=== PATIENT | male | born 1950 | race Caucasian/White ===

== ENCOUNTER 2021-05-19 11:14 | Outpatient (CLI) | payer MEDICARE, MEDICAID, SELFPAY ==
--- NOTE | 2021-05-19 11:00 | USCV_ITS ---
Morris Levin Age: 71 Gender: M : 1950 Exam Date: 05/19/2021 11:39 Ordering Phys: Hussein Hall MD Technologist: Brionna Guevara Exam Location: [facility] – [place] Indication: bilateral lower extremity swelling HISTORY: bilateral lower extremity swelling, history DVT RLE 2013 PROCEDURES: The venous duplex Doppler examination of both lower extremities was performed in the standard fashion. In addition, the posterior tibial and peroneal trunk were evaluated. Bilaterally, the common femoral, superficial femoral, profunda femoral, popliteal, posterior tibial, greater saphenous veins, and the peroneal trunk were identified and interrogated in the standard fashion. These veins were found to be easily compressible with spontaneous blood flow. FINDINGS: No DVT or superficial thrombus seen at this time. CONCLUSIONS No evidence of right lower extremity DVT. No evidence of left lower extremity DVT. Zev Goldman MD (Electronically Signed) Final Date: 19 May 2021 13:14 S
== END 2021-05-19 11:15 | disposition home or self-care (01) ==
LOC: RAD 11:20
PROVIDERS: PCP Family Medicine; Visit Provider Family Medicine
DX: M79.89 Other specified soft tissue disorders (principal)
CPT/HCPCS: 93970

== ENCOUNTER → 2022-05-25 14:08 | Outpatient (BNVA) | payer MEDICARE, MEDICAID, SELFPAY | PROVIDERS: PCP Family Medicine; Visit Provider Family Medicine | DX: Z00.00 Encounter for general adult medical examination without abnormal findings (principal) | CPT/HCPCS: 80053; 84153; 85025 ==

== ENCOUNTER 2022-08-12 22:04 | Inpatient (IN) | payer MEDICARE, MEDICAID, SELFPAY ==
[2022-08-12 22:05] VITALS: PULSE 76; RESP 18; TEMP 36.5; O2SAT 96; BMI 24.4
[2022-08-12 22:26] VITALS: O2SAT 94
--- NOTE | 2022-08-12 22:32 | XRR_ITS ---
PROCEDURE INFORMATION: Exam: XR Chest Exam date and time: 08/12/2022 11:01 PM Age: 72 years old Clinical indication: Shortness of breath; Additional info: SOB TECHNIQUE: Imaging protocol: Radiologic exam of the chest. Views: 1 view. COMPARISON: CR XR chest 2V* [id number] 05/23/2018 9:42 AM FINDINGS: Lungs: Emphysematous changes. Left upper lobe 2.8 cm focal airspace opacity, not seen on prior exam, consider further evaluation with chest CT. Right lower lobe calcified granuloma again seen. Pleural spaces: Unremarkable. No pleural effusion. No pneumothorax. Heart/Mediastinum: Cardiomegaly. Bones/joints: Unremarkable. XR/XR chest 1V portable [id number] IMPRESSION: 1. Cardiomegaly. 2. Emphysematous changes. 3. Left upper lobe 2.8 cm focal airspace opacity, not seen on prior exam, consider further evaluation with chest CT. 4. Right lower lobe calcified granuloma again seen.
--- NOTE | 2022-08-12 22:32 | ECG_ITS ---
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
--- NOTE | 2022-08-12 22:32 | CTR_ITS ---
PROCEDURE INFORMATION: Exam: CT Head Without Contrast Exam date and time: 08/12/2022 10:55 PM Age: 72 years old Clinical indication: Altered mental status/memory loss; Additional info: AMS TECHNIQUE: Imaging protocol: Computed tomography of the head without contrast. Radiation optimization: All CT scans at this facility use at least one of these dose optimization techniques: automated exposure control; mA and/or kV adjustment per patient size (includes targeted exams where dose is matched to clinical indication); or iterative reconstruction. COMPARISON: No relevant prior studies available. RADIATION DOSE METRICS: Total DLP (mGy-cm): 1125.98 FINDINGS: Brain: Mild diffuse white matter disease likely reflecting chronic microvascular ischemic changes. Cerebral ventricles: No ventriculomegaly. Paranasal sinuses: Visualized sinuses are unremarkable. No fluid levels. Mastoid air cells: Visualized mastoid air cells are well aerated. Bones/joints: Unremarkable. No acute fracture. Soft tissues: Unremarkable. CT/CT head wo con* [id number] IMPRESSION: Negative for intracranial hemorrhage or mass effect
[2022-08-12] MEDS: sodium chloride 0.9% 1,000 ML 999 ML IV (22:34)
--- NOTE | 2022-08-12 22:43 | W.ED.AMS ---
HPI - Altered Mental Status General: Chief Complaint: Altered Mental Status Stated Complaint: sob Time Seen by Provider: 08/12/22 22:10 Source: family Mode of arrival: ambulatory Limitations: altered mental status History of Present Illness: 72-year-old male who is here with his daughter patient was last seen by daughter yesterday does have a history of COPD he does take meds at night including alprazolam and trazodone they state they were called tonight to see it fell out of his wheelchair onto his had on the ground for roughly an hour when they arrived he was very lethargic patient is lethargic here as well he will awaken and answer some my questions he does have a history of COPD he is on oxygen at home he is 96% here on room air. Review of Systems General: Reports: ROS unobtainable due to mental status PFS ED PFSH: Medical History (Updated 08/13/22 @ 00:07 by Baldev Carlson MD) COPD (chronic obstructive pulmonary disease) Social History (Updated 08/12/22 @ 22:43 by Baldev Carlson MD) Substance/Drug Use: unknown Physical Exam Const: GENERAL APPEARANCE: ill appearing and frail appearing HENMT: COMMON NORMALS: normocephalic and atraumatic HEAD & SCALP: normocephalic and atraumatic Eye: COMMON NORMALS: Equal, round and reactive pupils present PUPIL: Yes Equal, round and reactive pupils present Neck/C-Spine: COMMON NORMALS: full ROM and supple Chest: COMMONS NORMALS: normal inspection of the chest and normal palpation of entire chest wall Resp: COMMON NORMALS: normal respiratory effort and clear to auscultation bilaterally AUSCULTATION: clear to auscultation bilaterally Cardio: COMMON NORMALS: regular rate and regular rhythm RATE: regular rate RHYTHM: regular rhythm GI: COMMON NORMALS: Normal to inspection, nondistended, normoactive bowel sounds present Back/Pelvis: COMMON NORMALS: thoracic and lumbar spine normal to inspection Extremity: COMMON NORMALS: normal to inspection and full ROM Neuro: OTHER: Patient is very lethargic but will wake up and answer my questions and does know his name Psych: COMMON NORMALS: negative for mental status grossly normal Skin: COMMON NORMALS: no rashes or lesions noted GENERAL SKIN EXAM: no rashes or lesions noted Course Vital Signs: Vital signs: Vital Signs Temperature 97.7 F 08/12/22 22:05 Pulse Rate 73 08/13/22 00:09 Respiratory Rate 17 08/13/22 00:09 Blood Pressure 123/66 08/13/22 00:09 Pulse Oximetry 99 08/13/22 00:09 Oxygen Delivery Me thod 08/13/22 00:09 Oxygen Flow Rate 4 08/12/22 22:05 MDM - Altered Mental Status Medical Decision Making Patient presents here with altered mental status most likely med related he will awake here he still quite lethargic CT shows lung mass is likely cancerous this is new. Patient has no signs of infection his blood work here is normal spoke to hospitalist will admit for observation. Lab Data : 08/12/22 22:28 08/12/22 22:28 Radiology Impressions Chest X-Ray 08/12/22 22:32 IMPRESSION: 1. Cardiomegaly. 2. Emphysematous changes. 3. Left upper lobe 2.8 cm focal airspace opacity, not seen on prior exam, consider further evaluation with chest CT. 4. Right lower lobe calcified granuloma again seen. Head CT 08/12/22 22:32 IMPRESSION: Negative for intracranial hemorrhage or mass effect Chest CT 08/12/22 23:04 IMPRESSION: 1. Mid left upper anterior lung field 9.1 mm thick area of somewhat nodular pleural thickening corresponding to the area of abnormality seen on comparison chest x-ray, new compared to prior exam. Highly suspicious nodule(s). Consider non-emergent PET/CT, or tissue sampling.(Reference: Romulo) 2. Left adrenal 3.1 cm low-density nodule suggestive of a benign adenoma given stability. 3. Left kidney nonobstructing calyceal stones. 4. T11 and T12 vertebral compression fractures appear chronic. 5. Mid sternal body chronic appearing healed fracture. 6. Cardiomegaly. 7. Coronary artery atherosclerotic calcifications. 8. Emphysematous changes. 9. Small hiatal hernia. 10. Lower sternal body mildly depressed fracture, new compared to prior exam, potentially acute, please correlate clinically. COMMENTS: Consistent with the [place] [employer]'s Incidental Findings Committee white paper (J Am Ivanna Radiol 2017): For any incidental adrenal lesion greater than or equal to 1 cm but less than or equal to 4 cm classified in this report as benign, likely benign, or containing fat (including classification as an adenoma or myelolipoma), no follow-up imaging is recommended per consensus recommendations based on imaging criteria. Further lab evaluation could be pursued if warranted based on clinical findings. REFERENCES: Romulo Rowe, et al. Guidelines for Management of Incidental Pulmonary Nodules Detected on CT Images: From the Fleischner Society 2017. Radiology. 2017;284(1):228-243. Laboratory Results WBC 11.5 10^3/uL (4.0-10.0) H 08/12/22 22: RBC 3.33 10^6/uL (4.1-5.3) L 08/12/22 22: Hgb 7.8 g/dL (11.7-16.6) L 08/12/22: Hct 27.3 % (42.0-52.0) L 08/12/22: MCV 82.0 fl (80-94) 08/12/22: MCH 23.4 pg (28.0-34.0) L 08/12/22: MCHC 28.6 g/dL (30.0-36.0) L 08/12/22: RDW 19.5 % (12.1-15.1) H 08/12/22: Plt Count 418 10^3/cmm (130-400) H 08/12/22: MPV 9.9 fL (7.4-10.4) 08/12/22: Neut % (Auto) 56.6 % 08/12/22: Lymph % (Auto) 26.4 % 08/12/22: Gillespie % (Auto) 14.1 % 08/12/22: Eos % (Auto) 1.8 % 08/12/22: Baso % (Auto) 0.8 % 08/12/22: Neut # (Auto) 6.50 10^3/uL (1.8-7.7) 08/12/22: Lymph # (Auto) 3.0 10^3/uL (0.8-4.8) 08/12/22 22: Gillespie # (Auto) 1.6 10^3/uL (0.2-0.9) H 08/12/22 22:28 Eos # (Auto) 0.2 10^3/uL (0.0-0.8) 08/12/22 22:28 Baso # (Auto) 0.1 10^3/uL (0.0-0.1) 08/12/22 22:28 Nucleated RBC % (auto) 0 % 08/12/22 22:28 Nucleated RBCs # 0.0 /100WBC 08/12/22 22:28 PT 20.40 SECONDS (12.1-14.9) H 08/12/22 23:20 INR 1.71 (0.8-1.2) H 08/12/22 23:20 Specimen Type Arterial 08/12/22 22:32 Sample Site Radial, right 08/12/22 22:32 ABG pH 7.32 (7.35-7.45) L 08/12/22 22:32 ABG pCO2 67.1 mmHg (35-45) H* 08/12/22 22:32 ABG pO2 85.5 mmHg (80.0-100.0) 08/12/22 22:32 ABG HCO3 34.8 mmol/L (22-26) H 08/12/22 22:32 ABG Base Excess 7.6 mmol/L (-2.0-2.0) H 08/12/22 22:32 Thanh Test Pos 08/12/22 22:32 Hematocrit 24.2 % (42-52) L 08/12/22 22:32 O2 Delivery Device Nc 08/12/22 22:32 O2 Liters/Min 4.0 % 08/12/22 22:32 System Analyst ID [email or web address] 08/12/22 22:32 Sodium 137 mmol/L (136-145) 08/12/22 22:28 Potassium 4.0 mmol/L (3.5-5.1) 08/12/22 22:28 Chloride 96 mmol/L (98-107) L 08/12/22 22:28 Carbon Dioxide 34 mmol/L (22-29) H 08/12/22 22:28 Anion Gap 11.0 (5-19) 08/12/22 22:28 BUN 10 mg/dL (8-23) 08/12/22 22:28 Creatinine 0.6 mg/dL (0.7-1.2) L 08/12/22 22:28 GFR Calculation Not Reportable 08/12/22: Glucose 89 mg/dL (65-115) 08/12/22: Calculated Osmolality 283 mOsm/kg (285-295) L 08/12/22: Lactate 1.1 mmol/L (0.5-2.2) 08/12/22: Calcium 8.5 mg/dL (8.5-10.5) 08/12/22: Magnesium 2.0 mg/dL (1.7-2.3) 08/12/22: Total Bilirubin 0.2 mg/dL (0.15-1.2) 08/12/22: AST 21 U/L (0-40) 08/12/22: ALT 7 U/L (0-41) 08/12/22: Alkaline Phosphatase 84 U/L (40-130) 08/12/22: Creatine Kinase 480 U/L (39-308) H* 08/12/22: Troponin T Baseline 18 ng/L (0-15) H 08/12/22: NT-Pro-B Natriuret Pep 130 pg/mL (0-125) H 08/12/22: Total Protein 6.6 g/dL (6.6-8.7) 08/12/22: Albumin 3.3 g/dL (3.5-5.2) L 08/12/22: Globulin 3.3 g/dL (1.3-4.6) 08/12/22: Lipase 16 U/L (13-60) 08/12/22: Urine Color Yellow (Yellow) 08/12/22: Urine Appearance Clear (CLEAR) 08/12/22: Urine pH 6 (5-7) 08/12/22: Ur Specific [place] 1.025 (1.005-1.030) 08/12/22: Urine Protein Neg (Negative) 08/12/22: Urine Glucose (UA) Norm (Normal) 08/12/22: Urine Ketones Negative (Negative) 08/12/22: Urine Blood Neg (Negative) 08/12/22: Urine Nitrate Negative (Negative) 09/24/22 22:28 Urine Bilirubin Neg (Negative) 08/12/22 22:28 Urine Urobilinogen Neg mg/dL (Negative) 08/12/22 22:28 Ur Leukocyte Esterase Negative (Negative) 08/12/22 22:28 Ethyl Alcohol < 10 mg/dL (0-10) 08/12/22 22:28 SARS-CoV-2 Ag (Rapid) Negative (Negative) 08/12/22 23:13 EKG Data EKG 1: I personally reviewed and interpreted this EKG as follows: EKG interpretation date: 08/12/22 EKG interpretation time: 22:28 Interpretation: nsr hr [address] or t wave abnormalities qrs 111 qtc 433 Discharge Plan Discharge Patient Disposition: Admitted As Inpatient Admit Provider: Sharif Carolina Clinical Impression: Altered mental status, Lung mass Condition: Stable Coding Level of Care Code ED Facilities Maintenance Manager for Chg Fwd Exam Comprehensive
[2022-08-12 22:47] LABS: Basophils # 0.1 10^3/uL (0.0-0.1); Basophils % 0.8 %; Eosinophils # 0.2 10^3/uL (0.0-0.8); Eosinophils % 1.8 %; Hematocrit 27.3 % (42.0-52.0); Hemoglobin 7.8 g/dL (11.7-16.6); Lymphocytes % 26.4 %; Mean Corpuscular HGB Conc 28.6 g/dL (30.0-36.0); Mean Corpuscular Hemoglobin 23.4 pg (28.0-34.0); Mean Platelet Volume 9.9 fL (7.4-10.4); Monocytes # 1.6 10^3/uL (0.2-0.9); Monocytes % 14.1 %; Neutrophils % 56.6 %; Nucleated Red Blood Cells % 0 %; Platelet Count 418 10^3/cmm (130-400); Red Blood Count 3.33 10^6/uL (4.1-5.3); Red Cell Distribution Width 19.5 % (12.1-15.1); White Blood Count 11.5 10^3/uL (4.0-10.0)
--- NOTE | 2022-08-12 23:04 | CTR_ITS ---
PROCEDURE INFORMATION: Exam: CT Chest Without Contrast; Diagnostic Exam date and time: 08/12/2022 11:25 PM Age: 72 years old Clinical indication: Shortness of breath; Additional info: Mass TECHNIQUE: Imaging protocol: Diagnostic computed tomography of the chest without contrast. Radiation optimization: All CT scans at this facility use at least one of these dose optimization techniques: automated exposure control; mA and/or kV adjustment per patient size (includes targeted exams where dose is matched to clinical indication); or iterative reconstruction. COMPARISON: CT chest [facility] [id number] 01/13/2016 2:56 PM RADIATION DOSE METRICS: Total DLP (mGy-cm): 603.31 FINDINGS: Lungs: Mid left upper anterior lung field 9.1 mm thick area of somewhat nodular pleural thickening corresponding to the area of abnormality seen on comparison chest x-ray, new compared to prior exam. Emphysematous changes. Pleural spaces: See Lungs finding. Heart: Cardiomegaly. Coronary artery atherosclerotic calcifications. Lymph nodes: Unremarkable. No enlarged lymph nodes. Vasculature: Unremarkable. No aortic aneurysm. Adrenal glands: Left adrenal 3.1 cm low-density nodule suggestive of a benign adenoma given stability. Kidneys and ureters: Left kidney nonobstructing calyceal stones. Bones/joints: T11 and T12 vertebral compression fractures appear chronic. Mid sternal body chronic appearing healed fracture. Lower sternal body mildly depressed fracture, new compared to prior exam, potentially acute, please correlate clinically. Soft tissues: Small hiatal hernia. CT/CT chest [facility] [id number] IMPRESSION: 1. Mid left upper anterior lung field 9.1 mm thick area of somewhat nodular pleural thickening corresponding to the area of abnormality seen on comparison chest x-ray, new compared to prior exam. Highly suspicious nodule(s). Consider non-emergent PET/CT, or tissue sampling.(Reference: Romulo) 2. Left adrenal 3.1 cm low-density nodule suggestive of a benign adenoma given stability. 3. Left kidney nonobstructing calyceal stones. 4. T11 and T12 vertebral compression fractures appear chronic. 5. Mid sternal body chronic appearing healed fracture. 6. Cardiomegaly. 7. Coronary artery atherosclerotic calcifications. 8. Emphysematous changes. 9. Small hiatal hernia. 10. Lower sternal body mildly depressed fracture, new compared to prior exam, potentially acute, please correlate clinically. COMMENTS: Consistent with the [place] [employer]'s Incidental Findings Committee white paper (J Am Ivanna Radiol 2017): For any incidental adrenal lesion greater than or equal to 1 cm but less than or equal to 4 cm classified in this report as benign, likely benign, or containing fat (including classification as an adenoma or myelolipoma), no follow-up imaging is recommended per consensus recommendations based on imaging criteria. Further lab evaluation could be pursued if warranted based on clinical findings. REFERENCES: Romulo Rowe, et al. Guidelines for Management of Incidental Pulmonary Nodules Detected on CT Images: From the Fleischner Society 2017. Radiology. 2017;284(1):228-243.
[2022-08-12 23:08] LABS: Lactate (Lactic Acid level) 1.1 mmol/L (0.5-2.2)
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
[2022-08-12 23:10] LABS: Troponin(5th) Baseline 18 ng/L (0-15)
[2022-08-12 23:13] LABS: Add Urine Microscopic? NO; Charge for UA Resulting for Rev
[2022-08-12 23:18] LABS: Alanine Aminotransferase 7 U/L (0-41); Albumin Level 3.3 g/dL (3.5-5.2); Alkaline Phosphatase 84 U/L (40-130); Aspartate Amino Transferase 21 U/L (0-40); Blood Urea Nitrogen 10 mg/dL (8-23); Calcium 8.5 mg/dL (8.5-10.5); Carbon Dioxide 34 mmol/L (22-29); Chloride 96 mmol/L (98-107); Globulin 3.3 g/dL (1.3-4.6); Glucose 89 mg/dL (65-115); Lipase 16 U/L (13-60); NT Pro B Type Natriuretic Pept 130 pg/mL (0-125); Osmolality Calculated 283 mOsm/kg (285-295); Sodium 137 mmol/L (136-145); Total Bilirubin 0.2 mg/dL (0.15-1.2); Total Protein 6.6 g/dL (6.6-8.7)
[2022-08-12 23:21] LABS: Bilirubin Urine Neg (Negative); Blood Urine Neg (Negative); Glucose Urine UA Norm (Normal); Ketones Urine Negative (Negative); Leukocyte Esterase Urine Negative (Negative); Nitrate Urine Negative (Negative); Protein Urine Neg (Negative); Specific Gravity, Urine 1.025 (1.005-1.030); Urine Appearance Clear (CLEAR); Urine Color Yellow (Yellow); Urobilinogen Urine Neg (Negative); pH Urine 6 (5-7)
[2022-08-12 23:21] LABS: ABG PH Result 7.32 (7.35-7.45); Arterial Blood Gas Hematocrit 24.2 % (42-52); Base Excess ABG 7.6 mmol/L (-2.0-2.0); Blood Gas Allen Test Pos; Blood Gas Sample Site Radial, right; Blood Gas Sample Type Arterial; HCO3 ABG 34.8 mmol/L (22-26); Oxygen Device NC; PO2 ABG 85.5 mmHg (80.0-100.0)
[2022-08-12 23:22] LABS: ABG PCO2 67.1 mmHg (35-45)
[2022-08-12 23:22] LABS: Alcohol Level < 10 mg/dL (0-10); Creatine Phosphokinase 480 U/L (39-308); Creatinine Clr Calc Pharmacy 94.8975
--- NOTE | 2022-08-12 23:22 | PC.NURSE ---
critical lab, CK 480, called from lab, dr salinas notified
[2022-08-12 23:35] LABS: INR 1.71 (0.8-1.2)
[2022-08-12 23:38] LABS: SARS Covid-2 Antigen Negative (Negative)
[2022-08-12 23:45] VITALS: BP 131/66; PULSE 76; RESP 17; O2SAT 100
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
[2022-08-13] VITALS (158 sets, daily range): BP systolic 101–176; BP diastolic 49–138; PULSE 60–95; RESP 3–26; TEMP 36.2–36.8; O2SAT 79–99
--- NOTE | 2022-08-13 00:11 | PC.NURSE ---
patient resting with eyes closed resp even and unlabored, vss, arouses to tactile stimulus.
--- NOTE | 2022-08-13 00:29 | PC.NURSE ---
report called to Shannan STOVER, accepted to room 262 med surg
--- NOTE | 2022-08-13 00:50 | PC.NURSE ---
Addendum entered by Ruthann Freire RN 08/13/22 02:30: while in the process of transporting patient to med surg unit, dr rod stated that patient would be going to icu, med surg notified. patient placed back in ed 13. Original Note: while in the process of moving patient down [place] to med surg, dr rod stated that patient would be going to ICU. Med surg called and notified. patient placed back in ed 13.
--- NOTE | 2022-08-13 01:04 | USCV_ITS ---
Morris Levin Age: 72 Gender: M : 1950 Exam Date: 08/13/2022 01:23 Ordering Phys: Sharif Carolina MD Technologist: Radha Cortez Exam Location: [facility] [place] Indication: AMS COPD BP: 130 / 66 HR: 70 Rhythm: Sinus Technical Quality: Adequate MEASUREMENTS (Male / Female) Normal Values 2D ECHO LV Diastolic Diameter PLAX 4.6 cm 4.2 - 5.9 / 3.9 - 5.3 cm LV Systolic Diameter PLAX 3.1 cm LV Chamber Size 2.8 cm IVS Diastolic Thickness 1.5 cm 0.6 - 1.0 / 0.6 - 0.9 cm IVS Systolic Thickness 1.6 cm LVPW Diastolic Thickness 1.2 cm 0.6 - 1.0 / 0.6 - 0.9 cm LVPW Systolic Thickness 1.8 cm RV Chamber Size 3.0 cm LVOT Diameter 2.0 cm LV Ejection Fraction 2D Teich 59.2 % LV Ejection Fraction MOD 2C 74.4 % LV Ejection Fraction 2C AL 74.0 % LA Diameter 3.8 cm LA Width 3.4 cm LA Height 3.1 cm RA Width 3.7 cm RA Height 3.4 cm Aorta at Sinotubular Diameter 3.0 cm IVC Diameter 1.8 cm M-MODE Aortic Annulus Diameter 4.0 cm LA Ao Ratio MM 1.0 MV E Point Septal Separation 0.9 cm DOPPLER AV Peak Velocity 147.0 cm/s LVOT Peak Velocity 87.0 cm/s AV Area Cont Eq vti 2.0 cm squared AV Area Cont Eq pk 1.9 cm squared MV Area PHT 2.5 cm squared Mitral E to A Ratio 0.7 MV E' Velocity 34.0 cm/s Mitral E to MV E' Ratio 8.8 Mitral E to LV E' Lateral Ratio 10.2 Mitral E to LV E' Septal Ratio 7.9 TR Peak Velocity 155.2 cm/s TR Peak Gradient 9.6 mmHg TR Mean Velocity 104.7 cm/s TR Mean Gradient 5.4 mmHg TR Velocity Time Integral 40.8 cm TV Peak E Velocity 58.0 cm/s Right Atrial Pressure 3.0 mmHg Pulmonary Artery Systolic Pressu 12.6 mmHg RV Acceleration Time 0.2 s RV Ejection Time 0.4 s RV AcT/ET 0.5 FINDINGS Left Ventricle Normal left ventricular size and systolic function, EF 59 %. No regional wall motion abnormalities. Mild left ventricular hypertrophy. Grade I/IV diastolic dysfunction (abnormal relaxation filling pattern), normal to mildly elevated filling pressures. Right Ventricle The right ventricle is normal in size and function. Right Atrium The right atrium is normal in size. Left Atrium The left atrium is normal in size. Mitral Valve No gross abnormalities noted Aortic Valve No gross abnormalities noted Tricuspid Valve Trace tricuspid valve regurgitation. Pulmonic Valve Pulmonic valve not well visualized. Pericardium Normal pericardium without effusion. Aorta Normal ascending aorta dimension. IVC Normal inferior vena cava. CONCLUSIONS Normal left ventricular size and systolic function, EF 59 %. No regional wall motion abnormalities. Mild left ventricular hypertrophy. Grade I/IV diastolic dysfunction (abnormal relaxation filling pattern), normal to mildly elevated filling pressures. Trace tricuspid valve regurgitation. Estimated pulmonary artery peak systolic pressure within normal limits. There is no pericardial effusion. There are no intracardiac masses. No similar previous studies are available for comparison Dr Mi Narayanan MD FACC (Electronically Signed) Final Date: 13 August 2022 09:28 S
--- NOTE | 2022-08-13 01:07 | PM.HP ---
Providers/Chief Complaint Admitting Physician: Sharif Carolina MD Primary Care Provider: Hussein Hall MD Chief Complaint: sob History of Present Illness Morris Levin is a 72 year old male with a past medical history of DVTs: Xarelto, history of COPD on 2 L, currently on methadone, doses unknown, but takes it in the morning, history of chronic anxiety and trazodone, and alprazolam who presents [facility] due to altered mental status, nonresponsiveness. Currently patient is awake, opens his eyes, but falls back asleep, alert oriented x3, does not follow commands, opens his eyes to sternal rub, but falls back asleep, does not withdraw from pain pupils are pinpoint, but reactive to light, patient's son and daughter at bedside. I also spoke to patient's Ania, who tells me that Morris [place], this evening, they were walking together to bed, when they both tripped and fell, she tells me that she took the biggest brunt of the fall, he had minimal trauma, but since then he has not been able to wake up, has been confused. She reports that he has been the regular old bill of health, no history of strokes, no history of heart disease, no history of overdose, she took he takes alprazolam, trazodone also takes methadone but she not sure how much methadone he takes. Denies any alcohol use, no other medication or drug use. He is does take Xarelto for history of lower extremity DVT. His head CT was negative for intracranial bleed. He has not had a prior fall in the past. Currently blood pressure 123/63, pulse 73, respiratory 15, temperature 97.7, O2 sat 93%. I did go over the scans with the radiologist, to ensure that there was no intracranial bleed, as patient's INR is elevated, he is on Xarelto, there is a questionable history of him falling and hitting his head, however radiologist advised me that there is no intracranial bleed Review of Systems General: Reports: ROS unobtainable due to mental status Medications/Allergies Home Medications Medication Instructions Recorded Confirmed Last Taken Type rivaroxaban 20 mg tablet (Xarelto) 20 mg PO DAILY #30 tabs 07/28/22 08/02/22 Unknown Rx Inogen Portable Oxygen Concentrator #1 ea 08/02/22 08/02/22 Unknown Rx albuterol sulfate 2.5 mg/0.5 mL 5 mg inhalation Q6H PRN shortness 08/02/22 08/02/22 Unknown History solution for nebulization of breath or wheezing albuterol sulfate 90 mcg/actuation 2 puff inhalation Q6H PRN 08/02/22 08/02/22 Unknown History aerosol inhaler (Ventolin HFA) alprazolam 1 mg tablet 1 mg PO TID PRN anxiety #90 tabs 08/02/22 08/02/22 Unknown Rx lovastatin 40 mg tablet 40 mg PO DAILY 08/02/22 08/02/22 Unknown History tamsulosin 0.4 mg capsule 0.4 mg PO DAILY 08/02/22 08/02/22 Unknown History trazodone 50 mg tablet 50 mg PO DAILY 08/02/22 08/02/22 Unknown History Allergies Allergy/AdvReac Type Severity Reaction Status Date / Time Unable to Assess Allergy Unverified 05/25/22 14:02 PFSH Acute PFSH: Medical History (Updated 08/13/22 @ 01:17 by Sharif Carolina MD) COPD (chronic obstructive pulmonary disease) History of anxiety History of DVT (deep vein thrombosis) Methadone use Social History (Updated 08/13/22 @ 01:17 by Sharif Carolina MD) Smoking and tobacco status: former smoker Alcohol intake: never Substance/Drug Use: never Vitals/I&O/Wt Last Vital Signs Temp 97.7 F 08/12/22 22:05 Pulse 73 08/13/22 00:43 Resp 15 08/13/22 00:43 BP 123/63 08/13/22 00:43 Pulse Ox 95 08/13/22 00:43 O2 Del Method 08/13/22 00:30 O2 Flow Rate 4 08/12/22 22:05 Weight last 48 hrs Weight 81.647 kg Physical Exam Const: COMMON NORMALS: no acute distress EXAM LIMITATIONS: altered mental status ORIENTATION/CONSCIOUSNESS: Yes awake and Yes confused; not oriented to person, not oriented to place and not oriented to time HENMT: COMMON NORMALS: normocephalic HEAD & SCALP: normocephalic Eye: OTHER: Pupils are pinpoint, minimally reactive to light Neck/C-Spine: COMMON NORMALS: no JVD Resp: COMMON NORMALS: normal respiratory effort, No retractions, No use of accessory muscles and clear to auscultation bilaterally AUSCULTATION: clear to auscultation bilaterally Cardio: COMMON NORMALS: no JVD, regular rate, regular rhythm, S1 normal heart sound present and S2 normal heart sound present RATE: regular rate RHYTHM: regular rhythm HEART SOUNDS: S1 normal heart sound present and S2 normal heart sound present GI: COMMON NORMALS: Normal to inspection, nondistended, normoactive bowel sounds present, Soft to palpation, non-tender, No hepatosplenomegaly present, no masses and no bruits PALPATION: Yes Soft to palpation and Yes No hepatosplenomegaly present Extremity: NARRATIVE EXTREMITY EXAM: Nonpitting edema Neuro: OTHER: Not follow following neurologic testing Urinary Catheter Management: Chacko: Cath Placed During This Visit: yes Urinary Catheter Date of Insertion: 08/12/22 Urinary Catheter Time of Insertion: 22:26 Data : 08/12/22 22:28 08/12/22 22:28 A&P Assessment and plan (1) Altered mental status: (2) COPD (chronic obstructive pulmonary disease): (3) Supplemental oxygen dependent: (4) Anxiety: Plan Altered mental status -Etiology unclear -Perhaps hypercarbia related to COPD could be playing a role, -In addition polypharmacy, he takes methadone during the day, trazodone, alprazolam chest CT -1. Mid left upper anterior lung field 9.1 mm thick area of somewhat nodular pleural thickening corresponding to the area of abnormality seen on comparison chest x-ray, new compared to prior exam. Highly suspicious nodule(s). Consider non-emergent PET/CT, or tissue sampling.(Reference: CelsoMahon) 2. Left adrenal 3.1 cm low-density nodule suggestive of a benign adenoma given stability. 3. Left kidney nonobstructing calyceal stones. 4. T11 and T12 vertebral compression fractures appear chronic. 5. Mid sternal body chronic appearing healed fracture. 6. Cardiomegaly. 7. Coronary artery atherosclerotic calcifications. 8. Emphysematous changes. 9. Small hiatal hernia. 10.? Lower sternal body mildly depressed fracture, new compared to prior exam, potentially acute, please correlate clinically. -No significant electrolyte abnormalities -Does have acute on chronic anemia etiology unclear -No significant evidence UTI, no significant evidence of pneumonia Plan -ESR, CRP, Pro-Silvestre -Neurochecks, NIH stroke scale -Hold alprazolam, trazodone, will have to call the pharmacy in the morning tomorrow to get his methadone dosing -Place BiPAP, for hypercarbia, monitor mentation, however not in exacerbation for COPD as note there is no wheezing, no shortness of breath complaints, he is on his 2 L saturating high 90s -Check ammonia levels -If his mentation does not improve will consider MRI of the brain, cardiac echo, carotid ultrasound -Full code, spoke to Ania -Dano for DVT prophylaxis Lower sternal body fracture, mildly depressed fracture, continue to monitor, monitor for pain Acute on chronic anemia, hemoglobin 7.8, is on Xarelto, etiology unclear, ferritin, iron, Hemoccult stool Lung nodule, 9.1 mm, will need to follow-up with pulmonary History of DVT, continue Xarelto Attestations Medical Necessity Statement*: Patient requires hospitalization, inpatient, greater than 2 minutes, due to altered mental status Coding Level of Care Code Acute Principal Embedded Software Engineer for Anh Giron Diagnoses Altered mental status R41.82 COPD (chronic obstructive pulmonary disease) J44.9 Supplemental oxygen dependent Z99.81 Anxiety F41.9
[2022-08-13] MEDS: pantoprazole 40 mg SDV IVP ×2 (01:20→13:32)
[2022-08-13] MEDS: sodium chloride 0.9% 1,000 ML 75 ML IV (01:20)
--- NOTE | 2022-08-13 01:20 | PC.NURSE ---
patient laying in bed at this time, eyes closed, vss, on bipap at 40% and tolerating well. opens eyes to repeated verbal stimulus, difficulty following commands, pinpoint pupils. lab at bedside for blood draw.patient repositioned with pillows to left side lying.
[2022-08-13 01:28] LABS: Reticulocyte % 1.1 % (0.5-2.0)
--- NOTE | 2022-08-13 01:30 | PC.NURSE ---
patient made NPO status
[2022-08-13 01:32] LABS: Erythrocyte Sedimentation Rate 64 mm/hr (0-10)
[2022-08-13 01:48] LABS: Lactic Sepsis W/Reflex 0.9 mmol/L (0.5-2.2)
[2022-08-13 01:49] LABS: Troponin 5 2HR 18.98 ng/L (0-15)
[2022-08-13 01:54] LABS: Troponin 5 2HR Delta 0.98 ABS# (0-10)
[2022-08-13 01:58] LABS: NT Pro B Type Natriuretic Pept 177 pg/mL (0-125)
[2022-08-13 02:20] LABS: Acetaminophen < 5.0 ug/mL (10-30); Salicylate < 0.3 mg/dL (3-10)
[2022-08-13 02:26] LABS: Procalcitonin 0.03 ng/mL (0-0.5); Thyroid Stimulating Hormone 0.28 uIU/mL (0.27-4.20); Vitamin B12 313 pg/mL (232-1245)
--- NOTE | 2022-08-13 02:29 | PC.NURSE ---
report called, accepted to ICU 8.
[2022-08-13 02:36] LABS: Ferritin 19 ng/mL (30-400); Iron 13 ug/dL (59-158)
--- NOTE | 2022-08-13 02:49 | PC.NURSE ---
Saving site called to update nursing staff that patient is candidate for donation. Attempting to reach family at this time. Patient will be moved to facility [facility].
--- NOTE | 2022-08-13 03:40 | ECG_ITS ---
[facility] Test Date: 2022-08-13 Pat Name: Morris Levin Department: Room: Gender: Male Potato Sorter: : 1950 Requested By: Baldev Carlson Order Number: [id number] Reading MD: Measurements Intervals Neville Rate: 67 P: 155 MT: 179 QRS: -18 QRSD: 94 T: 14 QT: 414 QTc: 440 Interpretive Statements ECTOPIC ATRIAL RHYTHM POSSIBLE RIGHT VENTRICULAR CONDUCTION DELAY [RSR (QR) IN V1/V2] ANTEROLATERAL MYOCARDIAL INFARCTION , OF INDETERMINATE AGE [40+ ms Q WAVE IN I/aVL/V3-V6] Compared to ECG 08/12/2022 22:28:48 Ectopic atrial rhythm now present Sinus rhythm no longer present Incomplete right bundle-branch block no longer present Myocardial infarct finding still present [id number]
--- NOTE | 2022-08-13 04:02 | PC.NURSE ---
Patient arrived to unit around 0310, transfer from ED. Orders had been previously acknowledged by ED after previously attempting to admit to [facility] unit. Patient is AO to person and year but not to date. Skin tears were noted to left elbow and forearm. Site was cleansed and two optifoam dressings applied. Patient was unable to answer questions involving home meds and denied any immunizations recently. Patient was put back on bipap shortly after initial assessment by RT. No family present to answer additional questions.
[2022-08-13 04:41] LABS: Amphetamines Screen Urine Negative (Negative); Barbiturates Screen Urine Negative (Negative); Benzodiazepines Screen Urine Positive (Negative); Cocaine Screen Urine Negative (Negative); Opiate Screen Urine Negative (Negative); PCP Screen Urine Negative (Negative); THC Screen Urine Negative (Negative)
[2022-08-13 05:12] LABS: Ammonia 37 umol/L (16-60)
[2022-08-13 05:35] LABS: Troponin 5 6HR 17.54 ng/L (0-15)
[2022-08-13 05:41] LABS: Troponin 5 6HR Delta -0.46 ng/L (0-12)
[2022-08-13 06:25] LABS: ABG PH Result 7.34 (7.35-7.45); Base Excess ABG 8.4 mmol/L (-2.0-2.0); Blood Gas Allen Test Pos; Blood Gas Operator Identificat MONRO; Blood Gas Sample Site Brachial, right; Blood Gas Sample Type Arterial; Carboxyhemoglobin 1.7 %THgb (0.4-20.1); HCO3 ABG 35.4 mmol/L (22-26); Ionized Calcium Level - ABG 1.2 mmol/L (1.1-1.4); Methemoglobin 0.9 % (0.4-1.5); Oxygen Device BIPAP; Oxygen Saturation ABG 94.5; PO2 ABG 69.7 mmHg (80.0-100.0); Potassium Level - ABG 3.7 mmol/L (3.5-5.0); Total Hemoglobin 7.8 g/dL (14-18)
[2022-08-13 06:26] LABS: Alveolar-Arterial Oxygen Gradi 8.4 mmHg (5-10)
[2022-08-13 06:27] LABS: ABG PCO2 65.3 mmHg (35-45)
--- NOTE | 2022-08-13 06:35 | PC.NURSE ---
Family Contact Patient's , Ania, called to check up on patient. During phone call, was very hysterical stating multiple times Do you understand that I'm picking him up this morning? I've never lived on my own, we've been 36 years and I am not staying here alone. Do you understand that you cannot keep him against his will and I am picking him up. Education provided on patient condition and stay regarding how patient is not unwilling to be here; did not allow statements to be made without interrupting stating once again, I don't know why he's there, he doesn't need to be there. When we fell, I took the brunt of the fall and he's not hurt at all, I don't know why you're keeping him there. I'm taking him home. Nurse asked, Ma'am, do you need to be seen by a medical provider? then stated, No, I'm fine and so is my . I'm taking him home. Education attempted to be provided by nurse on patient condition and legal aspects of patient stay; Understanding not verbalized.
--- NOTE | 2022-08-13 06:38 | PC.NURSE ---
Patient's called in hysterics over seeing her . She states You can not hold him against his will, I took the brunt of the fall and all the blood is from me. I informed her that she needs to seek medical attention. She insists that the hospital is holding her against his will and that she is just fine and does not need help. I explained to her that her is not agitated or asking to leave. Patient is resting peacefully on bipap to help with oxygen levels. then stated I will walk to the hospital if you will just tell me how to get there and take him home. I informed her that I did not know where she lived so I could not give her directions. She was unable to give me her address or a road number. Is not sure how to get to the hospital. Police department was notified and sending an officer out for a well-being check.
[2022-08-13 07:29] LABS: Basophils # 0.1 10^3/uL (0.0-0.1); Basophils % 1.3 %; Eosinophils # 0.3 10^3/uL (0.0-0.8); Eosinophils % 2.5 %; Hematocrit 26.6 % (42.0-52.0); Lymphocytes # 3.4 10^3/uL (0.8-4.8); Lymphocytes % 33.4 %; Mean Corpuscular HGB Conc 30.1 g/dL (30.0-36.0); Mean Corpuscular Hemoglobin 23.5 pg (28.0-34.0); Mean Corpuscular Volume 78.2 fl (80-94); Mean Platelet Volume 10.7 fL (7.4-10.4); Monocytes # 1.4 10^3/uL (0.2-0.9); Monocytes % 13.7 %; Neutrophils # 4.87 10^3/uL (1.8-7.7); Nucleated Red Blood Cells % 0 %; Platelet Count 369 10^3/cmm (130-400); Red Cell Distribution Width 19.4 % (12.1-15.1); White Blood Count 10.1 10^3/uL (4.0-10.0)
[2022-08-13] MEDS: iron sucrose 200 MG in sodium chloride 0.9% (100 ml) 100 ML 220 MG IV (07:33)
[2022-08-13 07:41] LABS: Alanine Aminotransferase 8 U/L (0-41); Alkaline Phosphatase 82 U/L (40-130); Anion Gap 9.1 (5-19); Aspartate Amino Transferase 28 U/L (0-40); Blood Urea Nitrogen 7 mg/dL (8-23); Calcium 8.3 mg/dL (8.5-10.5); Carbon Dioxide 33 mmol/L (22-29); Chloride 103 mmol/L (98-107); Globulin 3.1 g/dL (1.3-4.6); Glucose 73 mg/dL (65-115); Osmolality Calculated 289 mOsm/kg (285-295); Potassium 4.1 mmol/L (3.5-5.1); Sodium 141 mmol/L (136-145); Total Bilirubin 0.2 mg/dL (0.15-1.2); Total Protein 6.1 g/dL (6.6-8.7)
[2022-08-13] MEDS: ipratropium-albuterol 3 mL Neb INHALATION ×4 (07:49→19:48)
--- NOTE | 2022-08-13 08:00 | PC.NURSE ---
hugh called to check on demanding that we let him come hold and stop holding him against his will explained that he is requiring machine to help him breath and that had possible too much medication and was not able to come home at this time . continued to cry and yell that he needed to come home, they have not been apart for 36 years and she was coming up here if she had to walk but she was out of coffee so she had to go to store 20 min away and change out of pajamas and then take shower before.. attempted to calm her down but continued to scream im out of coffee and you have to let him come home. requested information on family who could help her she related her father lives across the street but he had cancer and he helps them but it is too early in morning to call him. continued to ask about who cares for them at home and helps with medication she finally gave name of antonio daughter in law and son ,, but she cant help with medicine she is not to be trusted with that , they come cook for us a couple times a week but you can not call them it is too early and they will be mad at me and use the f word a lot. after approximatly 20 to 30 min got her to calm down and to go eat breakfast and get dressed Did attempt to call friend ok with no answer and call placed to Antonio with no answer message left social services technician notified
--- NOTE | 2022-08-13 09:45 | PC.NURSE ---
son called about when his father is coming home.. we need him here today attempted to talk to him about his mother who appeared to need help after multiple calls and wellness check by police. thats just the way mom is i just need to know when he is getting out today . explained status of machine assisting him breathing and had too much medication on board need to be in hospital for several days. asked for his phone number and explained referal to outreach and education social worker to maybe assist
[2022-08-13 10:50] LABS: ABG PCO2 54.7 mmHg (35-45); ABG PH Result 7.41 (7.35-7.45); Alveolar-Arterial Oxygen Gradi 16.2 mmHg (5-10); Base Excess ABG 8.9 mmol/L (-2.0-2.0); Blood Gas Allen Test Pos; Blood Gas Operator Identificat CAK; Blood Gas Sample Site Radial, right; Blood Gas Sample Type Arterial; Carboxyhemoglobin 1.8 %THgb (0.4-20.1); HCO3 ABG 34.6 mmol/L (22-26); Ionized Calcium Level - ABG 1.2 mmol/L (1.1-1.4); Methemoglobin 1.5 % (0.4-1.5); Oxygen Device BIPAP; PO2 ABG 58.3 mmHg (80.0-100.0); Potassium Level - ABG 3.8 mmol/L (3.5-5.0); Total Hemoglobin 7.8 g/dL (14-18)
[2022-08-13] MEDS: predniSONE 20 mg Tablet 40 MG PO (11:21)
[2022-08-13 12:20] LABS: Chol HDL Ratio 2.73 mg/dL (1.0-5.00); Cholesterol 131 mg/dL (0-200); HDL Cholesterol 48 mg/dL (60-100); LDL Cholesterol Calculated 74 mg/dL (50-129); Triglycerides 43 mg/dL (0-150); VLDL Cholestrol Calculation 9 mg/dL (0-30)
[2022-08-13 12:36] LABS: Vitamin B12 283 pg/mL (232-1245)
[2022-08-13 12:38] LABS: Estmated Average Glucose 97
--- NOTE | 2022-08-13 14:42 | P.MISC_ITS ---
Miscellaneous Note Purpose of Documentation: Cross coverage note. Note: Admitted overnight. H&P appreciated. On examination patient is on BiPAP. Sleeping. Wakes up to verbal stimulus. Formulation the patient is alert and oriented x3. He does not remember why he was brought to the hospital. States he does not consume alcohol anymore. States he gets his methadone through [facility]. Not sure of his dose. States he will manage his own medication. Plan: Most likely altered mental status secondary to polypharmacy. Hypoxia secondary to COPD exacerbation and altered mental status. Check ABG to get a baseline. It seems his baseline PCO2 would be somewhere between 50-60. Switch to high flow nasal cannula keeping saturation over 88%. Start on Solu-Medrol 40 mg every 8 hourly. DuoNebs every 6 hours, budesonide twice daily. Check echocardiogram. Start on full liquid diet. Stop IV fluids. Patient does not have any active bleeding. Hemoglobin seems to be stable as before. Iron panel consistent with severe iron deficiency anemia. Continue with IV iron started overnight. Restart Xarelto at home dose. Check stool for occult blood. If hemoglobin dropping down or stool for occult blood positive will stop Xarelto and evaluate with EGD/colonoscopy. Protonix 40 mg twice daily Continue to hold off on home dose of trazodone, Xanax. Will have to call pharmacy in a.m. to get dose of methadone. Meanwhile start on Dilaudid 0.2 mg every 4 hour as needed to avoid withdrawal. Check MRSA swab, stool culture, vitamin B12, folate, procalcitonin, TSH.
[2022-08-13] MEDS: budesonide 0.5 mg/2 mL Neb INHALATION ×2 (15:13→19:48)
[2022-08-13 15:37] LABS: ABG PCO2 56.5 mmHg (35-45); ABG PH Result 7.38 (7.35-7.45); Alveolar-Arterial Oxygen Gradi 28.7 mmHg (5-10); Arterial Blood Gas Hematocrit 24.9 % (42-52); Base Excess ABG 7.6 mmol/L (-2.0-2.0); Blood Gas Allen Test Pos; Blood Gas Operator Identificat CAK; Blood Gas Sample Site Radial, left; Blood Gas Sample Type Arterial; Carboxyhemoglobin 1.5 %THgb (0.4-20.1); HCO3 ABG 33.7 mmol/L (22-26); Ionized Calcium Level - ABG 1.2 mmol/L (1.1-1.4); Methemoglobin 1.1 % (0.4-1.5); Oxygen Device HAG; Oxygen Saturation ABG 93.4; PO2 ABG 66.6 mmHg (80.0-100.0); Potassium Level - ABG 3.8 mmol/L (3.5-5.0); Total Hemoglobin 8.1 g/dL (14-18)
[2022-08-14] VITALS (52 sets, daily range): BP systolic 109–148; BP diastolic 47–79; PULSE 62–116; RESP 6–29; TEMP 36.6–36.8; O2SAT 90–99
[2022-08-14] MEDS: pantoprazole 40 mg SDV IVP ×2 (01:12→12:13)
[2022-08-14] MEDS: HYDROmorphone 1 mg/mL INJ 1 mL 0.2 MG IVP (01:45)
[2022-08-14 04:23] LABS: Basophils % 0.1 %; Hematocrit 26.4 % (42.0-52.0); Lymphocytes # 1.2 10^3/uL (0.8-4.8); Lymphocytes % 11.3 %; Mean Corpuscular HGB Conc 30.3 g/dL (30.0-36.0); Mean Corpuscular Hemoglobin 23.8 pg (28.0-34.0); Mean Corpuscular Volume 78.6 fl (80-94); Mean Platelet Volume 10.1 fL (7.4-10.4); Monocytes # 0.6 10^3/uL (0.2-0.9); Neutrophils # 9.06 10^3/uL (1.8-7.7); Nucleated Red Blood Cells % 0.2 %; Platelet Count 427 10^3/cmm (130-400); Red Blood Count 3.36 10^6/uL (4.1-5.3); Red Cell Distribution Width 19.3 % (12.1-15.1); White Blood Count 10.9 10^3/uL (4.0-10.0)
[2022-08-14 04:39] LABS: Alanine Aminotransferase 10 U/L (0-41); Alkaline Phosphatase 78 U/L (40-130); Anion Gap 11.1 (5-19); Aspartate Amino Transferase 23 U/L (0-40); Blood Urea Nitrogen 5 mg/dL (8-23); Calcium 8.7 mg/dL (8.5-10.5); Carbon Dioxide 31 mmol/L (22-29); Chloride 101 mmol/L (98-107); Globulin 3.5 g/dL (1.3-4.6); Glucose 140 mg/dL (65-115); Magnesium 2.1 mg/dL (1.7-2.3); Osmolality Calculated 288 mOsm/kg (285-295); Phosphorus 2.2 mg/dL (2.5-4.5); Potassium 4.1 mmol/L (3.5-5.1); Sodium 139 mmol/L (136-145); Total Bilirubin 0.2 mg/dL (0.15-1.2); Total Protein 6.5 g/dL (6.6-8.7)
--- NOTE | 2022-08-14 07:01 | PC.NURSE ---
Shift Note Frequent safety and comfort rounds continue. Orders and/or nursing care completed as indicated. Patient monitored for response to intervention and treatment(s). Education provided includes medications and treatment goals. Patient needs reinforcement teaching. Patient had an uneventful shift, remains alert and oriented x4 on BIPAP 40% FiO2. Skin tear noted to left elbow, no other wounds/skin issues noted at this time. Chacko catheter drained 900 mls of urine overnight. Will continue to monitor.
[2022-08-14] MEDS: budesonide 0.5 mg/2 mL Neb INHALATION ×2 (07:33→19:35)
[2022-08-14] MEDS: ipratropium-albuterol 3 mL Neb INHALATION ×4 (07:33→19:35)
[2022-08-14] MEDS: tamsulosin 0.4 mg Capsule PO (08:29)
[2022-08-14] MEDS: rivaroxaban 10 mg Tablet 20 MG PO (08:29)
[2022-08-14] MEDS: atorvastatin 40 mg Tablet 20 MG PO (08:29)
[2022-08-14] MEDS: phosphorus 250 mg Tablet PO ×2 (08:29→17:08)
[2022-08-14] MEDS: iron sucrose 200 MG in sodium chloride 0.9% (100 ml) 100 ML 220 MG IV (08:37)
[2022-08-14] MEDS: methadone 10 mg Tablet 115 MG PO (09:53)
[2022-08-14] MEDS: ALPRAZolam 0.5 mg Tablet PO (09:53)
--- NOTE | 2022-08-14 10:22 | P.PN_ITS ---
Subjective Subjective: Seen this morning. Patient is requesting his methadone. He says he takes either 110 150 mg daily. He follows at the pain clinic. He is also on Xanax 1 mg 3 times daily. He says his baseline oxygen is 3 to 4 L. Patient is at baseline right now at rest. He says he is not sure what happened and why he was confused. Vitals/I&O/Wt Last Vital Signs Temp 98.1 F 08/14/22 04:00 Pulse 90 08/14/22 09:00 Resp 16 08/14/22 09:00 BP 134/67 08/14/22 09:00 Pulse Ox 90 08/14/22 09:00 O2 Del Method 08/14/22 04:00 O2 Flow Rate 35 08/14/22 07:34 FiO2 35 08/14/22 07:32 08/13/22 08/14/22 08/14/22 22:59 06:59 14:59 Intake Total 200 / 1790 200 / 1990 300 / 300 Output Total 1200 / 1200 900 / 2100 Balance -1000 / 590 -700 / -110 300 / 300 Weight last 48 hrs Weight 82.809 kg Weight 81.647 kg Physical Exam Narrative: General: Alert oriented x3, patient seen sitting up in recliner on 4L NC saturating 90% HEENT: Normocephalic, atraumatic, EOMI, breathing comfortably, no acute distress Cardio: Regular rate rhythm, normal S1-S2, no murmurs Respiratory: B/l air entry decreased, mild ronchi at bases. GI: Abdomen soft, nontender, nondistended, bowel sounds + Extremities: no le edema b/l Urinary Catheter Management: Chacko: Cath Placed During This Visit: yes Reason for Continuing Indwelling Catheter: Accurate Measurement of Urinary Output in Critically Ill Patients Urinary Catheter Date of Insertion: 08/12/22 Urinary Catheter Time of Insertion: 22:26 Data : 08/14/22 04:11 08/14/22 04:11 Micro: Microbiology 08/13/22 01:19 Blood Culture - Preliminary Blood NEGATIVE TO DATE 08/13/22 01:17 Blood Culture - Preliminary Blood NEGATIVE TO DATE A&P Assessment and plan (1) Altered mental status: (2) COPD (chronic obstructive pulmonary disease): (3) Supplemental oxygen dependent: (4) Anxiety: Plan Altered mental status COPD exacerbation Methadone chronic use Hx of DVT, now on xarelto Anxiety Acute on chronic anemia -Etiology unclear -Perhaps hypercarbia related to COPD could be playing a role, -In addition polypharmacy, he takes methadone during the day, trazodone, alprazolam chest CT compelte. no acute pneumonia. Highly suspicious nodule 9.1 mm. Will refer to pulm at d/c -No significant electrolyte abnormalities -Does have acute on chronic anemia etiology unclear -No significant evidence UTI, no significant evidence of pneumonia Plan -Pro tom negative, CRP 16 - Covid negative -Neurochecks, NIH stroke scale- - Continue dolophine 115 mg daily. Confirmed this with pain clinic over phone. - Xanax 1 mg TID PRN - Possible etiology hypercarbia. Pt better now. - Continue solumedrol 40 Q8 hours - Azithromycin 500 daily x 5 days. - Echo complete. EF 59%, Grade 1 diastolic dysfunction. - Lower sternal body fracture, mildly depressed fracture, continue to monitor, monitor for pain - hemoglobin 7.8 at admission, today 8.0, is on Xarelto, etiology unclear, ferritin, iron, Hemoccult stool. Hb stable. -Full code -Xarelto for DVT prophylaxis Attestations Medical Necessity Statement*: Continue to monitor in hospital today. Coding Level of Care Code Acute Food And Beverage Checker for Anh Giron Diagnoses Altered mental status R41.82 COPD (chronic obstructive pulmonary disease) J44.9 Supplemental oxygen dependent Z99.81 Anxiety F41.9
[2022-08-14 14:16] LABS: Total Iron Binding Capacity 400 mcg/dl; Unsaturated Iron Binding 140 ug/dL (112-347)
[2022-08-14 15:14] LABS: Iron 260 ug/dL (59-158)
[2022-08-14] MEDS: azithromycin 250 mg Tablet 500 MG PO (15:28)
[2022-08-14] MEDS: ALPRAZolam 0.5 mg Tablet 1 MG PO ×2 (15:29→21:29)
[2022-08-15] VITALS (16 sets, daily range): BP systolic 110–146; BP diastolic 62–97; PULSE 63–76; RESP 8–17; TEMP 36.7–36.8; O2SAT 95–98
[2022-08-15 06:20] LABS: Anion Gap 9.8 (5-19); Blood Urea Nitrogen 12 mg/dL (8-23); Calcium 9.3 mg/dL (8.5-10.5); Carbon Dioxide 33 mmol/L (22-29); Chloride 101 mmol/L (98-107); Glucose 126 mg/dL (65-115); Magnesium 2.2 mg/dL (1.7-2.3); Osmolality Calculated 289 mOsm/kg (285-295); Potassium 4.8 mmol/L (3.5-5.1); Sodium 139 mmol/L (136-145)
[2022-08-15] MEDS: iron sucrose 200 MG in sodium chloride 0.9% (100 ml) 100 ML 220 MG IV (07:05)
[2022-08-15] MEDS: budesonide 0.5 mg/2 mL Neb INHALATION (07:33)
[2022-08-15] MEDS: ipratropium-albuterol 3 mL Neb INHALATION (07:33)
--- NOTE | 2022-08-15 09:58 | P.DS_ITS ---
Discharge Providers Date of Admission: 08/13/22 00:10 Date of Discharge: August 15, 2022 Attending Provider at Admission: Sharif Carolina MD Attending Provider at Discharge: Lauren Velásquez MD Primary Care Provider: Hussein Hall MD Diagnoses at Discharge Discharge Diagnosis (1) Altered mental status: Status: Resolved (2) COPD (chronic obstructive pulmonary disease): Status: Acute (3) Supplemental oxygen dependent: Status: Acute (4) Anxiety: Status: Acute Reason for Visit Reason for Visit: sob Brief History: Morris Levin is a 72 year old male with a past medical history of DVTs: Xarelto, history of COPD on 2 L, currently on methadone, doses unknown, but takes it in the morning, history of chronic anxiety and trazodone, and alprazolam who presents [facility] due to altered mental status, nonresponsiveness.? Currently patient is awake, opens his eyes, but falls back asleep, alert oriented x3, does not follow commands, opens his eyes to sternal rub, but falls back asleep, does not withdraw from pain pupils are pinpoint, but reactive to light, patient's son and daughter at bedside.? I also spoke to patient's Ania, who tells me that [place], this evening, they were walking together to bed, when they both tripped and fell, she tells me that she took the biggest brunt of the fall, he had minimal trauma, but since then he has not been able to wake up, has been confused.? She reports that he has been the regular old bill of health, no history of strokes, no history of heart disease, no history of overdose, she took he takes alprazolam, trazodone also takes methadone but she not sure how much methadone he takes.? Denies any alcohol use, no other medication or drug use.? He is does take Xarelto for history of lower extremity DVT.? His head CT was negative for intracranial bleed.? He has not had a prior fall in the past.? Currently blood pressure 123/63, pulse 73, respiratory 15, temperature 97.7, O2 sat 93%.? I did go over the scans with the radiologist, to ensure that there was no intracranial bleed, as patient's INR is elevated, he is on Xarelto, there is a questionable history of him falling and hitting his head, however radiologist advised me that there is no intracranial bleed Hospital Course Hospital Course Patient was admitted for altered mental status but resolved on its own. Patient was not following command on admission but was fine the next day. He had CO2 retention. He was kept on BiPAP overnight. He was also treated for COPD exacerbation. Patient was resumed on his home medications methadone and Xanax that he has taken for years. Dose was confirmed by methadone clinic and he is on 115 methadone daily. Patient was given azithromycin and prednisone to complete a 5-day course. He was asked to follow-up with pulmonology at discharge due to findings of 9.1 mm of pleural thickening seen on chest x-ray. Nodule highly suspicious. Patient also complained of left neck pain and requested an orthopedic surgery referral at discharge for chronic neck pain. Physical Exam Narrative: General: Alert oriented x3, patient seen sitting up in recliner on 4L NC saturating 90% HEENT: Normocephalic, atraumatic, EOMI, breathing comfortably, no acute distress Cardio: Regular rate rhythm, normal S1-S2, no murmurs Respiratory: B/l air entry decreased, mild ronchi at bases. GI: Abdomen soft, nontender, nondistended, bowel sounds + Extremities: no le edema b/l Urinary Catheter Management: Chacko: Cath Placed During This Visit: yes Reason for Continuing Indwelling Catheter: Accurate Measurement of Urinary Output in Critically Ill Patients Urinary Catheter Date of Insertion: 08/12/22 Urinary Catheter Time of Insertion: 22:26 Discharge Data Studies Completed and Pending Completed Studies During Hospitalization Category Date Time Status CT chest wo con [id number] Stat Cat Scan 08/12/22 23:[address] head wo con* [id number] Stat Cat Scan 08/12/22 22:32 Completed XR chest 1V portable [id number] Stat Exams 08/12/22 22:32 Completed CV. echo complete* [id number] Routine Ultrasound 08/13/22 01:04 Completed Pending at discharge Category Date Time Status Blood Culture Routine Lab 08/13/22 01:19 Results Occult Blood Stool [Immunochemical Fecal OCB] Routine Lab 08/13/22 01:42 Uncollected Radiology Impressions Chest X-Ray 08/12/22 22:32 IMPRESSION: 1. Cardiomegaly. 2. Emphysematous changes. 3. Left upper lobe 2.8 cm focal airspace opacity, not seen on prior exam, consider further evaluation with chest CT. 4. Right lower lobe calcified granuloma again seen. Head CT 08/12/22 22:32 IMPRESSION: Negative for intracranial hemorrhage or mass effect Chest CT 08/12/22 23:04 IMPRESSION: 1. Mid left upper anterior lung field 9.1 mm thick area of somewhat nodular pleural thickening corresponding to the area of abnormality seen on comparison chest x-ray, new compared to prior exam. Highly suspicious nodule(s). Consider non-emergent PET/CT, or tissue sampling.(Reference: Romulo) 2. Left adrenal 3.1 cm low-density nodule suggestive of a benign adenoma given stability. 3. Left kidney nonobstructing calyceal stones. 4. T11 and T12 vertebral compression fractures appear chronic. 5. Mid sternal body chronic appearing healed fracture. 6. Cardiomegaly. 7. Coronary artery atherosclerotic calcifications. 8. Emphysematous changes. 9. Small hiatal hernia. 10. Lower sternal body mildly depressed fracture, new compared to prior exam, potentially acute, please correlate clinically. COMMENTS: Consistent with the [employer]'s Incidental Findings Committee white paper (J Am Ivanna Radiol 2017): For any incidental adrenal lesion greater than or equal to 1 cm but less than or equal to 4 cm classified in this report as benign, likely benign, or containing fat (including classification as an adenoma or myelolipoma), no follow-up imaging is recommended per consensus recommendations based on imaging criteria. Further lab evaluation could be pursued if warranted based on clinical findings. REFERENCES: Romulo Rowe, et al. Guidelines for Management of Incidental Pulmonary Nodules Detected on CT Images: From the Fleischner Society 2017. Radiology. 2017;284(1):228-243. Laboratory Results WBC 10.9 10^3/uL (4.0-10.0) H 08/14/22 04:11 Corrected WBC Cancelled 08/14/22 03:09 RBC 3.36 10^6/uL (4.1-5.3) L 08/14/22 04:11 Hgb 8.0 g/dL (11.7-16.6) L 08/14/22 04:11 Hct 26.4 % (42.0-52.0) L 08/14/22 04:11 MCV 78.6 fl (80-94) L 08/14/22 04:11 MCH 23.8 pg (28.0-34.0) L 08/14/22 04:11 MCHC 30.3 g/dL (30.0-36.0) 08/14/22 04:11 RDW 19.3 % (12.1-15.1) H 08/14/22 04:11 Plt Count 427 10^3/cmm (130-400) H 08/14/22 04:11 MPV 10.1 fL (7.4-10.4) 08/14/22 04:11 Gran % Cancelled 08/14/22 03:09 Neut % (Auto) 83.0 % 08/14/22 04:11 Lymph % (Auto) 11.3 % 08/14/22 04:11 [place] % (Auto) 5.0 % 08/14/22 04:11 Eos % (Auto) 0.0 % 08/14/22 04:11 Baso % (Auto) 0.1 % 08/14/22 04:11 Reticulocyte % (Auto) 1.1 % (0.5-2.0) 08/13/22 01:17 Neut # (Auto) 9.06 10^3/uL (1.8-7.7) H 08/14/22 04:11 Lymph # (Auto) 1.2 10^3/uL (0.8-4.8) 08/14/22 04:11 [place] # (Auto) 0.6 10^3/uL (0.2-0.9) 08/14/22 04:11 Eos # (Auto) 0.0 10^3/uL (0.0-0.8) 08/14/22 04:11 Baso # (Auto) 0.0 10^3/uL (0.0-0.1) 08/14/22 04:11 Absolute Gran (auto) Cancelled 08/14/22 03:09 Nucleated RBC % (auto) 0.2 % 08/14/22 04:11 Nucleated RBCs # 0.0 /100WBC 08/14/22 04:11 ESR 64 mm/hr (0-10) H 08/13/22 01:17 PT 20.40 SECONDS (12.1-14.9) H 08/12/22 23:20 INR 1.71 (0.8-1.2) H 08/12/22 23:20 Specimen Type Arterial 08/13/22 15:26 Sample Site Radial, left 08/13/22 15: ABG pH 7.38 (7.35-7.45) 08/13/22 15: ABG pCO2 56.5 mmHg (35-45) H 08/13/22 15: ABG pO2 66.6 mmHg (80.0-100.0) L 08/13/22 15: ABG HCO3 33.7 mmol/L (22-26) H 08/13/22 15: ABG O2 Saturation 93.4 08/13/22 15: ABG Base Excess 7.6 mmol/L (-2.0-2.0) H 08/13/22 15:26 Thanh Test Pos 08/13/22 15: A-a O2 Gradient 28.7 mmHg (5-10) H 08/13/22 15:26 Hematocrit 24.9 % (42-52) L 08/13/22 15: Hgb O2 Saturation 91.0 % (95-100) L 08/13/22 15:26 Carboxyhemoglobin 1.5 %THgb (0.4-20.1) 08/13/22 15:26 Methemoglobin 1.1 % (0.4-1.5) 08/13/22 15: Total Hemoglobin 8.1 g/dL (14-18) L 08/13/22 15:26 Sodium 139.0 mmol/L (131-143) 08/13/22 15:26 Potassium 3.8 mmol/L (3.5-5.0) 08/13/22 15:26 Glucose 146.0 mg/dL (70-115) H 08/13/22 15:26 Ionized Calcium 1.2 mmol/L (1.1-1.4) 08/13/22 15: O2 Delivery Device Hag 08/13/22 15:26 O2 Liters/Min 40.0 % 08/13/22 15:26 FiO2 50.0 % 08/13/22 15:26 Furniture Mechanic ID Cak 08/13/22 15:26 Sodium 139 mmol/L (136-145) 08/15/22 05:45 Potassium 4.8 mmol/L (3.5-5.1) 08/15/22 05:45 Chloride 101 mmol/L (98-107) 08/15/22 05:45 Carbon Dioxide 33 mmol/L (22-29) H 08/15/22 05:45 Anion Gap 9.8 (5-19) 08/15/22 05:45 BUN 12 mg/dL (8-23) 08/15/22 05:45 Creatinine 0.5 mg/dL (0.7-1.2) L 08/15/22 05:45 GFR Calculation Not Reportable 08/15/22 05:45 Glucose 126 mg/dL (65-115) H 08/15/22 05:45 Estimat Average Glucose 97 08/13/22 01:17 Hemoglobin A1c 5.0 % (4.0-6.0) 08/13/22 01:17 Calculated Osmolality 289 mOsm/kg (285-295) 08/15/22 05:45 Lactic Acid 0.9 mmol/L (0.5-2.2) 08/13/22 01:17 Lactate 1.1 mmol/L (0.5-2.2) 08/12/22 22:28 Calcium 9.3 mg/dL (8.5-10.5) 08/15/22 05:45 Phosphorus 2.2 mg/dL (2.5-4.5) L 08/14/22 04:11 Magnesium 2.2 mg/dL (1.7-2.3) 08/15/22 05:45 Iron 260 ug/dL (59-158) H 08/14/22 13:35 TIBC 400 mcg/dl 08/14/22 13:35 % Saturation 65.0 % (20-50) H 08/14/22 13:35 Unsat Iron Binding 140 ug/dL (112-347) 08/14/22 13:35 Ferritin 19 ng/mL (30-400) L 08/13/22 01:17 Total Bilirubin 0.2 mg/dL (0.15-1.2) 08/14/22 04:11 AST 23 U/L (0-40) 08/14/22 04:11 ALT 10 U/L (0-41) 08/14/22 04:11 Alkaline Phosphatase 78 U/L (40-130) 08/14/22 04:11 Ammonia 37 umol/L (16-60) 08/12/22 04:36 Creatine Kinase 480 U/L (39-308) H* 08/12/22 22:28 Troponin T Baseline 18 ng/L (0-15) H 08/12/22 22:28 Troponin T 120 Minute 18.98 ng/L (0-15) H 08/13/22 01:17 Delta Troponin T 0.98 ABS# (0-10) 08/13/22 01:17 Troponin T Hi Sens 6Hr 17.54 ng/L (0-15) H 08/13/22 04:36 Troponin T Hi Sens 6Hr Delta -0.46 ng/L (0-12) L 08/13/22 04:36 C-Reactive Protein 16.0 mg/L (0.0-4.9) H 08/13/22 01:17 NT-Pro-B Natriuret Pep 177 pg/mL (0-125) H 08/13/22 01:17 Total Protein 6.5 g/dL (6.6-8.7) L 08/14/22 04:11 Albumin 3.0 g/dL (3.5-5.2) L 08/14/22 04:11 Globulin 3.5 g/dL (1.3-4.6) 08/14/22 04:11 Triglycerides 43 mg/dL (0-150) 08/13/22 07:00 Cholesterol 131 mg/dL (0-200) 08/13/22 07:00 LDL Cholesterol, Calc 74 mg/dL (50-129) 08/13/22 07:00 Total VLDL Cholesterol 9 mg/dL (0-30) 08/13/22 07:00 HDL Cholesterol 48 mg/dL (60-100) L 08/13/22 07:00 Cholesterol/HDL Ratio 2.73 mg/dL (1.0-5.00) 08/13/22 07:00 Lipase 16 U/L (13-60) 08/12/22 22:28 Vitamin B12 283 pg/mL (232-1245) 08/13/22 07:00 Folate 9.0 ng/mL (4.5-32.2) 08/13/22 01:17 Procalcitonin 0.03 ng/mL (0-0.5) 08/13/22 01:17 TSH 0.28 uIU/mL (0.27-4.20) 08/13/22 01:17 Urine Color Yellow (Yellow) 08/12/22 22:28 Urine Appearance Clear (CLEAR) 08/12/22 22:28 Urine pH 6 (5-7) 08/12/22 22:28 Ur Specific [place] 1.025 (1.005-1.030) 08/12/22 22:28 Urine Protein Neg (Negative) 08/12/22 22:28 Urine Glucose (UA) Norm (Normal) 08/12/22 22:28 Urine Ketones Negative (Negative) 08/12/22 22:28 Urine Blood Neg (Negative) 08/12/22 22:28 Urine Nitrate Negative (Negative) 08/12/22 22: Urine Bilirubin Neg (Negative) 08/12/22 22:28 Urine Urobilinogen Neg mg/dL (Negative) 08/12/22 22:28 Ur Leukocyte Esterase Negative (Negative) 08/12/22 22:28 Salicylates < 0.3 mg/dL (3-10) L 08/13/22 01:17 Urine Opiates Screen Negative ng/mL (Negative) 08/12/22 22: Acetaminophen < 5.0 ug/mL (10-30) L 08/13/22 01:17 Ur Barbiturates Screen Negative ng/mL (Negative) 08/12/22 22:28 Ur Phencyclidine Scrn Negative ng/mL (Negative) 08/12/22 22:28 Ur Amphetamines Screen Negative ng/mL (Negative) 08/12/22 22:28 U Benzodiazepines Scrn Positive ng/mL (Negative) H 08/12/22 22:28 Urine Cocaine Screen Negative ng/mL (Negative) 08/12/22 22:28 U Marijuana (THC) Screen Negative ng/mL (Negative) 08/12/22 22:28 Ethyl Alcohol < 10 mg/dL (0-10) 08/12/22 22:28 SARS-CoV-2 Ag (Rapid) Negative (Negative) 08/12/22 23:13 Vitals Last Vital Signs Temp 98.3 F 08/15/22 07:27 Pulse 75 08/15/22 07:35 Resp 16 08/15/22 07:35 BP 146/77 08/15/22 07:27 Pulse Ox 96 08/15/22 07:35 O2 Del Method 08/15/22 07:35 O2 Flow Rate 4 08/15/22 07:35 FiO2 35 08/15/22 07:27 Discharge Plan Discharge Patient Disposition: Home Condition: Stable Prescriptions: New azithromycin 250 mg Tablet 500 mg PO DAILY 5 Days Qty: 5 0RF prednisone 20 mg tablet 40 mg PO DAILY 4 Days Qty: 8 0RF Continued alprazolam 1 mg tablet 1 mg PO TID PRN (Reason: anxiety) Qty: 90 3RF trazodone 50 mg tablet 50 mg PO DAILY lovastatin 40 mg tablet 40 mg PO DAILY albuterol sulfate [Ventolin HFA] 90 mcg/actuation HFA aerosol inhaler 2 puff inhalation Q6H PRN (Reason: Pain) albuterol sulfate 2.5 mg/0.5 mL solution for nebulization 5 mg inhalation Q6H PRN (Reason: shortness of breath or wheezing) No Action (DME) Inogen Portable Oxygen Concentrator See Rx Instructions .Route .MEDSUPPLY Qty: 1 0RF Rx Instructions: As directed - 3L O2 via nc to allow for ambulation tamsulosin 0.4 mg capsule 0.4 mg PO DAILY Qty: 90 3RF Xarelto 20 mg tablet 20 mg PO DAILY Qty: 30 9RF Rx Instructions: must administer with evening meal Discharge Orders: Discharge Order (Routine); Ordered 08/15/22 Ordered By: Lauren Velásquez Referrals: Marlo Wood DO [Physician] - 2 weeks (Please follow-up with Dr. Wood on at 10:30A.M. If you have any questions or need to reschedule. Please call ) Jason Fang MD [Physician] - 2 weeks (Please follow-up with Dr. Fang at [facility] on tomorrow , at 12:30P.M. If you have any questions or need to reschedule. Please call ) Hussein Hall MD [Primary Care Provider] - 4-7 days (Please follow-up with Dr. Hall on Aug.21 at 11:00A.M. If you have any questions or need to reschedule. Please call ) Discharge Diet: Regular Discharge Activity: Increase activity as tolerated and As per PT/OT instructions Patient Instructions: Prednisone (By mouth) (predniSONE Intensol, Prednicot, Deltasone, Zhou), Azithromycin (By mouth), Vertebral Compression Fracture (DC), Pulmonary Nodules (DC), COPD Stoplight, Opioid Safety Discharge Attestations Time Spent in Discharge Care*: less than 30 min Quality Metrics Clinical Quality Measures [ No reported AMI, CVA or VTE this stay] Coding Level of Care Code Acute Chg FW DC note Diagnoses Altered mental status R41.82 COPD (chronic obstructive pulmonary disease) J44.9 Supplemental oxygen dependent Z99.81 Anxiety F41.9
[2022-08-15] MEDS: ALPRAZolam 0.5 mg Tablet 1 MG PO (10:00)
== END 2022-08-15 13:52 | disposition home or self-care (01) | DRG 948 ==
LOC: ER 08-13 00:07 → MEDSURG 08-13 00:22 → ICU 08-13 06:57 → MEDSURG 08-13 09:29
PROVIDERS: Student in an Organized Health Care Education/Training Program; Admitting Provider Family Medicine; Emergency Provider Emergency Medicine; PCP Family Medicine; Visit Provider Internal Medicine
DX: R41.82 Altered mental status, unspecified (principal); J44.1 Chronic obstructive pulmonary disease with (acute) exacerbation; T40.3X5A Adverse effect of methadone, initial encounter; T43.215A Adverse effect of selective serotonin and norepinephrine reuptake inhibitors, initial encounter; F41.9 Anxiety disorder, unspecified; R91.8 Other nonspecific abnormal finding of lung field; D64.9 Anemia, unspecified; R79.1 Abnormal coagulation profile; G89.29 Other chronic pain; M54.2 Cervicalgia; Z99.81 Dependence on supplemental oxygen; Z86.718 Personal history of other venous thrombosis and embolism; Z79.01 Long term (current) use of anticoagulants; Z79.891 Long term (current) use of opiate analgesic; Z79.899 Other long term (current) drug therapy; Z91.81 History of falling
CPT/HCPCS: 36415; 36600; 51702; 70450; 71045; 71250; 80048; 80051; 80053; 80061; 80306; 80307; 81003; 82140; 82330; 82550; 82607; 82728; 82746; 82803; 82805; 83036; 83540; 83550; 83605; 83690; 83735; 83880; 84100; 84145; 84443; 84484; 85025; 85045; 85610; 85651; 86140; 87040; 87426; 87641; 93005; 93306; 94640; 94660; 94664; 96360; 99285; C9113; J1170; J1756; J2920; J2930; J7030; J7512; J7626; Q0144

== ENCOUNTER 2023-10-08 12:20 | Inpatient (IN) | payer MEDICARE, MEDICAID, SELFPAY ==
[2023-10-08] VITALS (78 sets, daily range): BP systolic 78–125; BP diastolic 43–78; PULSE 0–108; RESP 12–27; TEMP 34.2–37; O2SAT 79–98; BMI 22.4
--- NOTE | 2023-10-08 | XRR_ITS ---
PROCEDURE INFORMATION: Exam: XR Right Pelvis Exam date and time: 10/08/2023 6:02 PM Age: 73 years old Clinical indication: Device placement; Other: Lt femoral central line post red RT hip; Prior surgery; Surgery date: 6+ months; Additional info: Post reduction RT hip lt femoral central line placement TECHNIQUE: Imaging protocol: Right Radiologic exam of the pelvis. Views: 1 or 2 view. COMPARISON: CT chest abdpel w/*[id number] 10/08/2023 3:28 PM FINDINGS: Bones/joints: The dislocation of the right hip arthroplasty seen on prior examination shows successful reduction. No acute bony abnormalities seen.. No acute fracture. Soft tissues: Unremarkable. There is a central line extending into the iliac vein on the left side. Urinary bladder does not show intrinsic abnormalities. An apparent Chacko catheter is present centrally XR/XR pelvis 1-2V* [id number] IMPRESSION: 1. Successful reduction of right hip arthroplasty dislocation. 2. There is a catheter in place in the left iliac area 3. Urinary bladder does not show intrinsic abnormality. 4. Otherwise No acute findings.
--- NOTE | 2023-10-08 12:22 | XR_ITS ---
WS: [id number] PORTABLE CHEST HISTORY: intubation COMPARISON: 08/12/2022 Endotracheal tube in good position ending several centimeters above the luis. Nasogastric tube is a lso present with tip terminating below the GE junction. RIGHT IJ central line. Lungs are mildly hyperexpanded. Mild pulmonary edema. Left-sided pleural thickening and has progresse d since the prior study. Blunting of the LEFT costophrenic angle. RIGHT lower lobe granuloma. No pneu mothorax. Cardiac size: Mildly enlarged cardiac silhouette. Mediastinum/Aorta: Mild atherosclerosis aorta. Osteopenia. IMPRESSION: 1. Nasogastric and endotracheal tubes are in good position. 2. RIGHT IJ central line in good position. 3. Lobulated LEFT pleural thickening is progressed since 08/12/2022. Chronic pleural thickening. Tiny effusion may also be present. 4. Mild pulmonary edema.
--- NOTE | 2023-10-08 12:22 | ECG_ITS ---
[facility] Test Date: 2023-10-08 Pat Name: Morris Levin Department: Room: Gender: Male Fitness Worker: : 1950 Requested By: Darryl Carmona Order Number: [id number] Oscar MD: Kellie Casanova M.D. Measurements Intervals [place] Rate: 95 P: 81 CT: 158 QRS: 33 QRSD: 90 T: 67 QT: 330 QTc: 416 Interpretive Statements SINUS RHYTHM ST abnormality inferoalteral leads Q waves anteroseptal leads Abnormal ECG Electronically Signed On 10-08-2023 14:40:28 COOK STARCH by Kellie Casanova M.D. [email or web address] Ltdparkwood behavioral health systemAngry Citizencommunity [facility].[email or web address]/[id number] f
[2023-10-08] MEDS: norepinephrine 4 MG/250 ML BAG 22.5 MG IV (12:25)
[2023-10-08] MEDS: DOPamine drip 400 MG/250 ML PREMIX 14.03 MG IV (12:33)
[2023-10-08 12:47] LABS: Mean Corpuscular HGB Conc 26.4 g/dL (30-55); Mean Corpuscular Hemoglobin 19.7 pg (27-33); Mean Corpuscular Volume 74.6 fl (82-101); Mean Platelet Volume 11.3 fL (7.4-10.4); Platelet Count 241 10^3/cmm (157-399); Red Blood Count 1.73 10^6/uL (3.85-5.65); Red Cell Distribution Width 26.6 % (12.1-15.1); White Blood Count 15.31 10^3/uL (3.29-11.43)
[2023-10-08] MEDS: aspirin 325 mg Tablet PO (12:47)
[2023-10-08] MEDS: clopidogrel 300 mg Tablet 600 MG PO (12:47)
[2023-10-08] MEDS: heparin 5,000 unit/mL INJ 1 mL 4000 UNIT IVP (12:47)
[2023-10-08 12:56] LABS: ABG PCO2 59.3 mmHg (35-45); Alveolar-Arterial Oxygen Gradi 44.6 mmHg (5-10); Arterial Blood Gas Hematocrit 11.5 % (42-52); Base Excess ABG 2.9 mmol/L (-2.0-2.0); Blood Gas Allen Test Pos; Blood Gas Operator Identificat GD; Blood Gas Sample Site Radial, left; Blood Gas Sample Type Arterial; HCO3 ABG 29.2 mmol/L (22-26); HGB O2 Sat 98.3 % (95-100); Ionized Calcium Level - ABG 1.1 mmol/L (1.1-1.4); Methemoglobin 0.4 % (0.4-1.5); Oxygen Device VENT; Oxygen Saturation ABG > 100.0; PO2 FiO2 Ratio Arterial Blood 0; Potassium Level - ABG 3.7 mmol/L (3.5-5.0); Total Hemoglobin 3.7 g/dL (14-18)
--- NOTE | 2023-10-08 12:57 | XRR_ITS ---
PROCEDURE INFORMATION: Exam: XR Chest Exam date and time: 10/08/2023 12:39 PM Age: 73 years old Clinical indication: Device placement; Other: Central line, et tube, ng tube; Additional info: Et, central line, ng TECHNIQUE: Imaging protocol: Radiologic exam of the chest. Views: 1 view. COMPARISON: CR (CHEST, ) 10/08/2023 12:39 PM FINDINGS: Tubes, catheters and devices: Endotracheal tube terminates 7 cm above the luis at the level of the inferior clavicular heads. NG tube courses below the left hemidiaphragm and terminates beyond the field of view. Right IJ venous catheter terminates near the superior cavoatrial junction. Lungs: Left lower lobe consolidation. Mild streaky linear scarring of the peripheral left upper to mid lung zone. Peripheral right lower lung calcified granuloma. Pleural spaces: Small to moderate left pleural effusion. Likely small right pleural effusion. No pneumothorax. Heart/Mediastinum: Unremarkable. No cardiomegaly. Vasculature: Aortic arch atherosclerotic calcification. Bones/joints: Degenerative changes along the spine and shoulders. Multiple chronic appearing bilateral rib fracture deformities. XR/XR chest 1V portable [id number] IMPRESSION: 1. Support structures as above. 2. Left lower lobe consolidation may represent atelectasis or pneumonia. 3. Hbbg-itryosp-sctv-right pleural effusions.
[2023-10-08 13:01] LABS: INR 11.07 (0.8-1.2)
[2023-10-08] MEDS: magnesium sulfate premix 2 GM/50 ML PIGGYBACK IV (13:07)
[2023-10-08 13:09] LABS: Alanine Aminotransferase 37 U/L (0-41); Albumin Level 1.8 g/dL (3.5-5.2); Alkaline Phosphatase 70 U/L (40-130); Anion Gap 18.1 (5-19); Aspartate Amino Transferase 70 U/L (0-40); Blood Urea Nitrogen 33 mg/dL (8-23); Calcium 7.5 mg/dL (8.5-10.5); Carbon Dioxide 26 mmol/L (22-29); Chloride 106 mmol/L (98-107); Globulin 3.5 g/dL (1.3-4.6); Glucose 107 mg/dL (65-115); Osmolality Calculated 310 mOsm/kg (285-295); Potassium 4.1 mmol/L (3.5-5.1); Sodium 146 mmol/L (136-145); Total Bilirubin 1.3 mg/dL (0.15-1.2); Total Protein 5.3 g/dL (6.6-8.7)
[2023-10-08 13:10] LABS: Ammonia 47 umol/L (16-60)
[2023-10-08 13:11] LABS: Lactic Sepsis W/Reflex 7.5 mmol/L (0.5-2.2); Troponin(5th) Baseline 236 ng/L (0-15)
--- NOTE | 2023-10-08 13:11 | PC.NURSE ---
1233- Right IJ placed by Dr Vallecillo, 1242- OC placed STEMI called 1243- Chacko placed PCXR 1244- advanced ETT 2cm,currently at 27 cm at the lips
[2023-10-08 13:14] LABS: Hematocrit 12.9 % (37-53)
[2023-10-08 13:27] LABS: Slide Review Slide Review Perform
[2023-10-08 13:28] LABS: Absolute Neutrophil 14.7 10^3/cmm (1.4-6.5); Absolute Segmented Neutrophil 14.4 10/cmm (1.6-7.1); Band Neutrophils Absolute 0.3 10^3/cmm (0.0-1.2); Eosinophils 0 %; Hypochromasia 3+; Lymphocytes 0 %; Lymphocytes Absolute 0.5 10^3/cmm (1.2-3.4); Monocytes Absolute 0.2 10^3/cmm (0.1-0.6); Platelet Estimate Normal (Normal); Poikilocytosis 3+; Segmented Neutrophils 94 %; Total Cells Counted 100 (0-100)
[2023-10-08 13:29] LABS: Acanthocytes 2+; Anisocytosis 3+; Macrocytosis 2+; Target Cells 3+
--- NOTE | 2023-10-08 13:42 | ECG_ITS ---
[facility] Test Date: 2023-10-08 Pat Name: Morris Levin Department: Room: Gender: Male Wildfire Prevention Specialist: : 1950 Requested By: Darryl Carmona Order Number: [id number] Oscar MD: Kellie Casanova M.D. Measurements Intervals [place] Rate: 89 P: 75 MN: 157 QRS: 33 QRSD: 96 T: 90 QT: 364 QTc: 444 Interpretive Statements SINUS RHYTHM WITH OCCASIONAL VENTRICULAR PREMATURE COMPLEXES ST changes, consider cardiac ischemia Compared to ECG 08/13/2022 03:40:20 Ventricular premature complex(es) now present Abnormal EKG. Electronically Signed On 10-08-2023 14:51:21 SURVEY RESEARCH CENTER DIRECTOR by Kellie Casanova M.D. [email or web address] [email or web address] [id number]
--- NOTE | 2023-10-08 13:45 | ED_ITS ---
HPI - General Adult 2 General: Chief complaint: Cardiac Arrest/CPR Stated complaint: Cardiac Arrest Time Seen by Provider: 10/08/23 12:54 Source: family and EMS Mode of arrival: EMS History of Present Illness: 73-year-old male arrives in the ER intub ated. They were called to the scene for poorly responsive on arrival he was in respiratory arrest and subsequent cardiac arrest he was given 30 mg of etomidate and 100 mg rocuronium and RSI intubated. Patient was given IV push dose epinephrine for hypotension as well. On arrival here he is an IO in place he is not responsive to any stimuli when I seen the patient. Family members arrived later the states he has been active walking around making his own meals last couple days other family members (sons) say that has not been the case when they go to visit him he has been sleeping most of the time is poorly responsive and not very active. He is on Xarelto Onset (ago): day(s) Review of Systems 2 General: Reports: ROS unobtainable due to endotracheal tube PFSH ED 2 PFSH: Medical History COPD (chronic obstructive pulmonary disease) History of anxiety History of DVT (deep vein thrombosis) Methadone use Social History Smoking and tobacco/nicotine status: former use of tobacco/nicotine Alcohol intake: never Substance/Drug Use: never Physical Exam 2 HENMT: COMMON NORMALS: normocephalic, atraumatic and hearing grossly normal bilaterally HEAD & SCALP: normocephalic and atraumatic Cardio: COMMON NORMALS: regular rate, regular rhythm and No murmurs present (Cardio) RATE: regular rate RHYTHM: regular rhythm GI: COMMON NORMALS: Soft to palpation and No hepatosplenomegaly present A USCULTATION: Yes normoactive bowel sounds PALPATION: Yes Soft to palpation, No Tenderness to palpation present (GI), No Guarding due to palpation present (GI) and Yes No hepatosplenomegaly present Extremity: COMMON NORMALS: normal to inspection, no clubbing, cyanosis or edema, no calf tenderness and no pedal edema Skin: COMMON NORMALS: no rashes or lesions noted GENERAL SKIN EXAM: no rashes or lesions noted Procedures Central Line Placement Right IJ: Time Out Performed: Yes Patient Placed on Monitor/Pulse Ox: Yes Prep: mask, gown and gloves Central Line Prep: Chlorhexidine scrub Ultrasound Used for Placement: Yes Central Line Lumen Inserted: triple Post Procedure: sutured in place, good blood return, all ports aspirated, flushed, capped and sterile dressing applied Post Procedure X-Ray: tip of catheter in good position Patient Tolerated Procedure: well Complications: none Left Femoral: Patient Placed on Monitor/Pulse Ox: Yes MD Prep: mask, gown and gloves Central Line Prep: Chlorhexidine scrub Ultrasound Used for Placement: Yes Central Line Lumen Inserted: triple Post Procedure: sutured in place, good blood return, all ports aspirated, flushed, capped and sterile dressing applied Post Procedure X-Ray: tip of catheter in good position Patient Tolerated Procedure: well Complications: none Course 2 Vital Signs: Vital signs: Vital Signs Temperature 98.4 F 10/09/23 12:23 Pulse Rate 0 L 10/09/23 15:15 Respiratory Rate 23 H 10/09/23 13:30 Blood Pressure 45/29 10/09/23 15:15 Pulse Oximetry 61 L 10/09/23 14:55 Oxygen Delivery Me thod Mechanical Ventil ation 10/09/23 12:37 Fraction of Inspir ed Oxygen 100 10/09/23 12:37 MDM - General Adult Medical Decision Making Patient prolonged ER course. Arrives intubated with IO in place after acute respiratory failure in the field. Report from the family when they did arrive was mixed. The states he has been up and active making his own meals ambulating. His 2 sons say he has been barely functioning recently most of the time when they go to see him he said the sleep and poorly to nonresponsive. Initially on arrival a right IJ was placed due to lack of IV access. Patient was significantly hypotensive was started on Levophed and dopamine this adequately supported his blood pressure initial EKG shows ischemic with slight ST elevation In V12 and [address] depression in V45 and 6 as well as 2 3 and aVF. Suspect that this is all due to demand ischemia from the profound anemia. His initial hemoglobin was 3.4. Patient was cautiously hydrated but we limited the amount of IV fluids given because of his profound anemia and instead relied on blood products he was initially given 2 units of uncrossed blood as well as 2 units of fresh frozen plasma as his INR was 11.1 he is on Xarelto. Chacko was placed he has had poor urinary output initially he had about 150 mL urine output this did not improve with fluid resuscitation. Continued on the dopamine and Levophed but did not require any sedation. He had initially been given rocuronium and etomidate. It was at least 4 hours into his ER stay before he required any additional sedation and he was given low doses of Versed and fentanyl this required adding vasopressin to maintain his pressure support. He also required further IV access as we are using all of the ports available on the initial central line and a second central line was placed in the left femoral vein. Multiple discussions with the family about treatment plans. Patient is obviously an extremely guarded condition at this point. History is giving I think is very suspect she is overwhelmed by what she perceives as a precipitous decline in the rest of the finally describes as has been a long onset progressively worsening. His lactic acidosis is elevated which I believe is due to his shock. We did get blood cultures and cover him for the possibility of aspiration pneumonia with Zosyn. No obvious signs of bleeding a rectal exam had a Hemoccult positive blood but no gross blood noted. There was no hematemesis and no blood from the OG tube. At this time there is no active bleeding. He was given transischemic acid suspect that the abnormal lab findings are due to an acute ongoing bleed rather a long slow bleed that has progressively worsened. A previous hemoglobin from last year was in the mid 7 range to 8 at the time of discharge. Family is still discussing whether or not they wish to make the patient comfort cares the is still wishing to do everything we can to rest of the family members feel that we should switch to comfort cares in the course of conversations I had with him. I did advise him that he is in a very guarded condition and he may not survive this. Discussed with Dr. Bullard will transfer patient to the ICU. Medical Records I reviewed the patient's medical records. Lab Data I reviewed the patient's lab results. 10/09/23 08:38 10/09/23 08:38 Radiology Impressions Pelvis X-Ray 10/08/23 00:00 IMPRESSION: 1. Successful reduction of right hip arthroplasty dislocation. 2. There is a catheter in place in the left iliac area 3. Urinary bladder does not show intrinsic abnormality. 4. Otherwise No acute findings. Chest X-Ray 10/09/23 07:00 IMPRESSION: 1. No acute findings. 2. Opacified left hemithorax. Laboratory Results WBC 15.31 10^3/uL (3.29-11.43) H 10/08/23 12:24 Corrected WBC 12.0 10^3/cmm (4.8-10.8) H 10/08/23 12:24 RBC 1.73 10^6/uL (3.85-5.65) L 10/08/23 12:24 Hgb 3.40 g/dL (11.27-16.99) L* 10/08/23 12:24 Hct 12.9 % (37-53) L* 10/08/23 12:24 MCV 74.6 fl (82-101) L 10/08/23 12:24 MCH 19.7 pg (27-33) L 10/08/23 12:24 MCHC 26.4 g/dL (30-55) L 10/08/23 12:24 RDW 26.6 % (12.1-15.1) H 10/08/23 12:24 Plt Count 241 10^3/cmm (157-399) 10/08/23 12:24 MPV 11.3 fL (7.4-10.4) H 10/08/23 12:24 Lymph % (Auto) Not Reportable 10/08/23 12:24 [place] % (Auto) Not Reportable 10/08/23 12:24 Lymph # (Auto) Not Reportable 10/08/23 12:24 [place] # (Auto) Not Reportable 10/08/23 12:24 Total Counted 100 (0-100) 10/08/23 12:24 Atypical Lymphs % 3.0 % (0-5) 10/08/23 12:24 Absolute Neutrophils 14.7 10^3/cmm (1.4-6.5) H 10/08/23 12:24 Segmented Neutrophils 94 % 10/08/23 12:24 Abs Segm Neuts (Man) 14.4 10/cmm (1.6-7.1) H 10/08/23 12:24 Band Neutrophils 2.0 % 10/08/23 12:24 Abs Band Neuts (Man) 0.3 10^3/cmm (0.0-1.2) 10/08/23 12:24 Absolute Lymphocytes 0.5 10^3/cmm (1.2-3.4) L 10/08/23 12:24 Lymphocytes (Manual) 0 % 10/08/23 12:24 Monocytes (Manual) 1.0 % 10/08/23 12: Absolute Monocytes 0.2 10^3/cmm (0.1-0.6) 10/08/23 12:24 Eosinophils (Manual) 0 % 10/08/23 12: Absolute Eosinophils 0.0 10^3/cmm (0.0-0.7) 10/08/23 12:24 Basophils (Manual) 0.0 % 10/08/23 12: Absolute Basophils 0.0 10^3/cmm (0.0-0.2) 10/08/23 12:24 Nucleated RBCs 28.0 /100WBC (0-1) H 10/08/23 12:24 Platelet Estimate Normal (Normal) 10/08/23 12:24 Hypochromasia 3+ H 10/08/23 12:24 Poikilocytosis 3+ H 10/08/23 12:24 Anisocytosis 3+ H 10/08/23 12:24 Macrocytosis 2+ H 10/08/23 12:24 Target Cells 3+ H 10/08/23 12:24 Acanthocytes (Spur) 2+ H 10/08/23 12:24 PT 91.00 SECONDS (12.1-14.9) H 10/08/23 12:24 INR 11.07 (0.8-1.2) H* 10/08/23 12:24 Specimen Type Arterial 10/08/23 15:00 Sample Site Radial, left 10/08/23 15:00 ABG pH 7.39 (7.35-7.45) 10/08/23 15:00 ABG pCO2 49.8 mmHg (35-45) H 10/08/23 15:00 ABG pO2 58.5 mmHg (80.0-100.0) L 10/08/23 15:00 ABG PO2/FiO2 Ratio 0 10/08/23 15:00 ABG HCO3 30.2 mmol/L (22-26) H 10/08/23 15:00 ABG O2 Saturation 90.0 10/08/23 15:00 ABG Base Excess 4.8 mmol/L (-2.0-2.0) H 10/08/23 15:00 Thanh Test Pos 10/08/23 15:00 A-a O2 Gradient 49.0 mmHg (5-10) H 10/08/23 15:00 Hematocrit 22.1 % (42-52) L 10/08/23 15:00 Hgb O2 Saturation 88.2 % (95-100) L 10/08/23 15:00 Carboxyhemoglobin 1.8 %THgb (0.4-20.1) 10/08/23 15:00 Methemoglobin 0.3 % (0.4-1.5) L 10/08/23 15:00 Total Hemoglobin 7.2 g/dL (14-18) L 10/08/23 15:00 Sodium 145.0 mmol/L (131-143) H 10/08/23 15:00 Potassium 3.7 mmol/L (3.5-5.0) 10/08/23 15:00 Glucose 149.0 mg/dL (70-115) H 10/08/23 15:00 Ionized Calcium 1.0 mmol/L (1.1-1.4) L 10/08/23 15:00 O2 Delivery Device Vent 10/08/23 15:00 FiO2 70.0 % 10/08/23 15:00 Tidal Volume 0.55 10/08/23 15:00 PEEP 6.0 cmH20 10/08/23 15:00 Jewelry Drilling Machine Operator ID [id number] 10/08/23 15:00 Sodium 146 mmol/L (136-145) H 10/08/23 12:24 Potassium 4.1 mmol/L (3.5-5.1) 10/08/23 12:24 Chloride 106 mmol/L (98-107) 10/08/23 12:24 Carbon Dioxide 26 mmol/L (22-29) 10/08/23 12:24 Anion Gap 18.1 (5-19) 10/08/23 12:24 BUN 33 mg/dL (8-23) H 10/08/23 12:24 Creatinine 1.6 mg/dL (0.7-1.2) H 10/08/23 12:24 GFR Calculation Not Reportable 10/08/23 12:24 Glucose 107 mg/dL (65-115) 10/08/23 12:24 Calculated Osmolality 310 mOsm/kg (285-295) H 10/08/23 12:24 Lactic Acid 7.5 mmol/L (0.5-2.2) H* 10/08/23 12:24 Lactic Acid (Sepsis) 5.5 mmol/L (0.5-2.2) H* 10/08/23 15:24 Calcium 7.5 mg/dL (8.5-10.5) L 10/08/23 12:24 Total Bilirubin 1.3 mg/dL (0.15-1.2) H 10/08/23 12:24 AST 70 U/L (0-40) H 10/08/23 12:24 ALT 37 U/L (0-41) 10/08/23 12:24 Alkaline Phosphatase 70 U/L (40-130) 10/08/23 12:24 Ammonia 47 umol/L (16-60) 10/08/23 12:24 Troponin T Baseline 236 ng/L (0-15) H* 10/08/23 12:24 Troponin T 120 Minute 180.3 ng/L (0-15) H 10/08/23 15:40 Delta Troponin T -55.7 ABS# (0-10) L 10/08/23 15:40 Total Protein 5.3 g/dL (6.6-8.7) L 10/08/23 12:24 Albumin 1.8 g/dL (3.5-5.2) L 10/08/23 12:24 Globulin 3.5 g/dL (1.3-4.6) 10/08/23 12:24 Blood Type A Positive 10/08/23 12:34 Rho(D) Type Rh positive 10/08/23 12:34 Antibody Screen Negative 10/08/23 12:34 Crossmatch See Detail 10/08/23 12:34 All radiology interpretation(s) finalized by discharge Critical Care Time 2 Critical Care Time: Critical Care Time: Yes Total Critical Care Time: 180 Attestation: The high probability of a clinically significant, sudden or life threatening deterioration of the patient's cardiovascular, renal, hematologic system(s) required my full and direct attention, intervention and personal management. The critical care time is as shown. This time is in addition to time spent performing any reported procedures but includes the following: [x] Data and vital sign review and interpretation [x] Patient assessment, examination and intervention [x] Documentation [x] Medication orders and management Discharge Plan Discharge Patient Disposition: Admitted As Inpatient Admit Provider: Sharif Carolina Clinical Impression: Hemorrhagic shock, Acute anemia, GI bleed, Elevated INR, Lactic acidosis, Cardiac arrest, Hypothermia, Dislocation of right hip, COPD (chronic obstructive pulmonary disease), Ischemia due to increased oxygen demand Condition: Stable Coding Level of Care Code ED Brush Maker Machine for Anh Giron
--- NOTE | 2023-10-08 13:52 | PC.NURSE ---
DR. SNOW ORDERED EMERGENT BLOOD DUE TO PATIENT DECLINING CONDITION. EMERGENT BLOOD INFUSION STARTED AT 1259 AND WAS FINISHED TRANSFUSING AT 1320. PT WAS GIVEN 2 UNITS OF BLOOD VIA RAPID INFUSER.PT ON JOINT CREASER WITH CONSTANT MONITORING DURING INFUSION. NO FURTHER ORDERS AT THIS TIME.
[2023-10-08] MEDS: sodium chloride 0.9% 2,245.29 ML 2245.29 ML IV (14:07)
[2023-10-08] MEDS: piperacillin-tazobactam 3.375 GM in sodium chloride 0.9% (plus) 50 ML IV ×2 (14:07→23:10)
[2023-10-08 14:27] LABS: Reflex Lactate Order REFLEX LACTIC ORDERD
--- NOTE | 2023-10-08 14:32 | CT_ITS ---
WS: [id number] CT CHEST, ABDOMEN AND PELVIS WITH CONTRAST HISTORY: AMS/anemia TECHNIQUE: Contiguous 5 mm axial imaging performed through the chest, abdomen and pelvis with IV cont rast, oral contrast has not been provided. Coronal and sagittal reformats chest. Coronal and sagittal reformats through the abdomen and pelvis. All CT scans at [facility] use at least one of the se dose optimization techniques: automated exposure control; mA and/or kV adjustment per patient size (includes targeted exams where dose is matched to clinical indication); or iterative reconstruction. CONTRAST: Omnipaque 350; 100 mL IV. DLP: 1195.74 mGy.cm COMPARISON: 08/12/[address]: Nasogastric and endotracheal tubes are in good position. Mild volume loss LEFT thorax. Computer Networker ghulam pleural thickening and nodularity throughout the LEFT chest. No significant free-flowing effusion . Near complete atelectasis LEFT lower lobe. Mild edema and fluid overload. Mild pleural thickening a t the RIGHT lung base. Heart size is slightly enlarged. There are a few small mediastinal and hilar l ymph nodes. Mild gynecomastia. Abdomen CT: Normal size liver. Negative gallbladder. Spleen is not identified. In the LEFT upper quad rant there is a lobulated soft tissue mass with calcification which may be an autoinfarcted spleen or residual splenic tissue. Atrophic pancreas. There is a LEFT adrenal mass measuring 2.5 x 3.2 cm whic h has been previously described. There is variable echogenicity throughout this mass. Long-term stabi lity with little change since 2011. Normal RIGHT adrenal gland. No renal obstruction. Mild atheroscle rosis aorta. No aneurysm. There is extensive soft tissue anasarca. No GI tract obstruction. No adenopathy or free air. Pelvic CT: Soft tissue anasarca. Small amount of free fluid in the pelvis. Chacko catheter nondistende d urinary bladder. RIGHT hip arthroplasty is dislocated. Arthroplasty dislocation is age-indeterminate. IMPRESSION: 1. Study is significantly compromised by breathing motion artifact. 2. Nasogastric and endotracheal tubes are in good position. 3. Chronic pleural thickening of the LEFT thorax. 4. Near complete atelectasis LEFT lower lobe. 5. No GI tract obstruction or free air. 6. Moderate diffuse soft tissue anasarca. 7. Long-term stability LEFT adrenal mass. 8. RIGHT hip arthroplasty with age-indeterminate hip dislocation.
--- NOTE | 2023-10-08 14:32 | CT_ITS ---
WS: [id number] CT HEAD NONCONTRAST HISTORY: AMS TECHNIQUE: Contiguous axial imaging performed through the brain in 2.5 mm imaging. Bone and soft tiss ue windows. Sagittal and coronal reformats reviewed. All CT scans at [facility] use at least one of these dose optimization techniques: automated exposure control; mA and/or kV adjustment per pa tient size (includes targeted exams where dose is matched to clinical indication); or iterative recon struction. DLP: 1144.40 mGy.cm COMPARISON: 08/12/2022 No acute intracranial hemorrhage, midline shift or mass effect. Mild atrophy and mild small vessel ischemic disease. Ventricles: Normal size with no hydrocephalus. No inferior displacement of the cerebellar tonsils. Paranasal sinuses: As visualized are clear. Mastoid air cells: Well pneumatized. Calvarium and scalp: Skull is intact with no soft tissue edema or swelling. IMPRESSION: 1. No acute intracranial hemorrhage or edema. 2. Mild atrophy and mild small vessel ischemic disease.
[2023-10-08 15:16] LABS: ABG PCO2 49.8 mmHg (35-45); ABG PH Result 7.39 (7.35-7.45); Arterial Blood Gas Hematocrit 22.1 % (42-52); Base Excess ABG 4.8 mmol/L (-2.0-2.0); Blood Gas Allen Test Pos; Blood Gas Operator Identificat GD; Blood Gas Sample Site Radial, left; Blood Gas Sample Type Arterial; Blood Gas Tidal Volume 0.55; Carboxyhemoglobin 1.8 %THgb (0.4-20.1); HCO3 ABG 30.2 mmol/L (22-26); HGB O2 Sat 88.2 % (95-100); Methemoglobin 0.3 % (0.4-1.5); Oxygen Device VENT; PO2 ABG 58.5 mmHg (80.0-100.0); PO2 FiO2 Ratio Arterial Blood 0; Potassium Level - ABG 3.7 mmol/L (3.5-5.0); Total Hemoglobin 7.2 g/dL (14-18)
[2023-10-08] MEDS: iohexol 350 mg/mL 500 mL Btl (per mL) IV (15:39)
[2023-10-08 16:22] LABS: Lactic Acid level (Lactate) 5.5 mmol/L (0.5-2.2)
[2023-10-08 16:25] LABS: Troponin 5 2HR 180.3 ng/L (0-15)
[2023-10-08] MEDS: midazolam hcl 100 MG/100 ML BAG IV (17:00)
[2023-10-08] MEDS: fentaNYL 1,000 MCG/100 ML BAG 2.5 MCG IV (17:00)
--- NOTE | 2023-10-08 17:22 | PC.NURSE ---
PT ARRIVED TO ED VIA EMS IN RESP. DISTRESS INTUBATED 8.0 AT LIPS. PT ONLY RESPONDING TO PAINFUL STIMULI. PTS SPOUSE REPORTS PT HAS BEEN SICK FOR MULTIPLE DAYS WITH WEAKNESS AND INABILITY TO MOVE ON HIS OWN. PT HAS MOTTLING TO THE HANDS AND FEET.
[2023-10-08] MEDS: pantoprazole 40 mg SDV 80 MG IVP (17:55)
--- NOTE | 2023-10-08 18:04 | PC.NURSE ---
PER DR. CARMONA LEVOPHED INCREASED TO 15MCG/MIN.
[2023-10-08] MEDS: vasopressin 40 UNIT/100 ML PREMIX IV (18:14)
--- NOTE | 2023-10-08 18:14 | PC.NURSE ---
PER DR. CARMONA, VERSED INFUSION SET AT 6MG/HR
--- NOTE | 2023-10-08 18:16 | PC.NURSE ---
LUNG SOUNDS AUSCULTATED, CRACKLES NOTED IN BILATERALLY. DIMINISHED LUNG SOUNDS IN LEFT UPPER LOBE.
--- NOTE | 2023-10-08 18:28 | ECG_ITS ---
[facility] Test Date: 2023-10-08 Pat Name: Morris Levin Department: Room: Gender: Male Breaker Up: : 1950 Requested By: Darryl Carmona Order Number: [id number] Oscar MD: Mi Narayanan M.D. Measurements Intervals [place] Rate: 104 P: 89 TX: 145 QRS: 29 QRSD: 105 T: 107 QT: 349 QTc: 461 Interpretive Statements SINUS TACHYCARDIA WITH FREQUENT VENTRICULAR PREMATURE COMPLEXES IN A BIGEMINAL PATTERN ANTEROSEPTAL MYOCARDIAL INFARCTION , OF INDETERMINATE AGE [40+ ms Q WAVE IN V1-V4] Compared to ECG 10/08/2023 13:42:41 Myocardial infarct finding now present Sinus rhythm no longer present ST (T wave) deviation no longer present Possible ischemia no longer present Electronically Signed On 10-08-2023 19:08:43 DUMPMAN by Mi Narayanan M.D. [id number]
--- NOTE | 2023-10-08 18:41 | PC.NURSE ---
DOPAMINE TITRATED TO [address] SNOW
--- NOTE | 2023-10-08 18:42 | PC.NURSE ---
VERSED TITRATED DOWN TO 4MG/HR PER DR. SNOW
[2023-10-08] MEDS: albumin 25 G/100 ML BAG 60 G IV (18:52)
--- NOTE | 2023-10-08 19:19 | PC.NURSE ---
pts family came to this nurse and states they might change code status, requesting to speak with Doctor taking care of patient. this nurse notified Dr. Reyes, Dr. Reyes states he will contact [facility].
--- NOTE | 2023-10-08 20:00 | PM.HP ---
Providers/Chief Complaint Admitting Physician: Sharif Carolina MD Primary Care Provider: Hussein Hall MD Chief Complaint: Cardiac Arrest History of Present Illness Morris Levin is a 73 year old male with a past medical history of DVT, on Xarelto, history of COPD, on 2 L, history of methadone use, chronic anxiety, chronic anemia, who presents to [facility] due to cardiac arrest episode. Currently patient is intubated, sedated, mechanical ventilation, pupils are equal round minimally reactive to light, no corneal reflex, but he does bite down on the ET tube, he does localize pain, he does thrash his head, he is on fentanyl and Versed for sedation, currently on 10 of Levophed, on dopamine, he has received 3 units of blood, 2 units of FFP, patient's family is at bedside patient's is at bedside. The history that I got from patient's is fairly limited, she is in shock, at times of not able to get a straightforward history from her but I did the best I could, and family members at bedside failed then. According to patient's family, patient's , patient has been sick for the last month or so, he has not had any complaints per se, but has not been doing well, he has been less mobile, has been more bedbound, requiring assistance more for activities of daily living, his functionality has been decreasing, he might have had an episode of hematemesis a few weeks ago, family denies any episodes of bloody or black stools, patient's tells me that he is always anemia, and that he always has lower extremity edema, that is not nothing new. Patient woke up this morning, he was not feeling well, did not have breakfast, according to patient's son, they were very concerned about him, this morning, so they are willing to take him to the hospital, when suddenly patient became unresponsive became limp, patient's tells me that he got CPR for about 2 minutes, from her, I was unable to get a clear answer from her if he had a pulse or not, she tells me that he was in breathing, he was not responding so she did CPR, according to nursing staff, patient arrived via EMS in respiratory distress, intubated, only responding to painful stimuli, he had received 30 of etomidate, 5 mcg of epi, PEEP of 10, vent was in place, patient did not receive CPR in the emergency room, he was hypotensive, requiring fluids, he was found to have ST elevations in the anterior leads, which were discussed with cardiology by ER provider, baseline troponin 236, he was given loading dose of Plavix, he was heparinized, patient's lab work came back, his INR was 11, hemoglobin was 3.4 lactic acid 7.5, he is received 3 units of blood, 2 units of FFP, currently on Levophed, dopamine, intubated, sedated on Versed, fentanyl, but like above does bite down on the ET tube, does withdraw from pain,. Patient developed persistent hypotensive episodes in the emergency room, so I had nursing staff start him on vasopressin increase Levophed to 15. Give him a fluid bolus, recheck, CBC and INR stat. He does have mottling of bilateral lower extremities, DP PT pulses barely palpable, capillary refill greater than 3 seconds, he has mottling up to the level of bilateral knees. Tachycardic, heart rates in the 110s, sinus rhythm, he is hypothermic, and a bear hugger. Rectal exam showed that Hemoccult stool was positive. No blood from ET tube. No active bleeding per rectum, on examination, no active bleeding from the mouth, abdomen soft, benign, no guarding, no rebound, no rigidity, CT scan abdomen pelvis with IV contrast reveals no acute source of bleeding. -I had a detailed discussion with patient's and family at bedside, ? There is disagreement about goals of care, patient's tells me that she wants everything to be done for her , she wants us to continue intubation she wants us to continue CPR if needed, she wants him to remain a full code, ? I had a detailed discussion about patient's critical status, he is currently on 3 pressors, intubated, currently in shock, his prognosis is poor, status is critical, she wants us to continue all medical intervention, ? Patient's sons at bedside, disagree, they tell me that Morris has not been doing well for the last year, he has been slowly declining in his decline has more rapidly progressed in the last month, that he is not moved much in the last few weeks, he requires total assistance activities of daily living, they are not too keen on having aggressive interventions, they joke with me that what if they could lock up their mom, could we then make decisions for her dad, they want to stop all aggressive interventions, -I advised family that currently patient's next of kin is his , and she will be making all the medical decisions, certainly their input is very important, their mother is going through a lot, and I cannot imagine what she is going through, and the decisions that she has to undergo, but being supportive and helping her in the decision making would be most align with respecting patient's overall goals of care, ? I again multiple times discussed goals of care with patient's , for now patient is a full code she wants all interventions, ? I had a detailed discussion with her about my concern of concerns for shock, patient might be undergoing a GI bleed, currently he is too unstable to be transferred to tertiary level center as he is on 3 pressors, if I can stabilize him we could see if he could be a candidate to be transferred to tertiary level center which he could have evaluation by GI team, IR to find the source of his anemia source of his bleeding, ? Currently I have many thoughts on what is going on ? Certainly patient has shock, the etiology by the shock could be multifactorial, 1 component could be hemorrhagic shock given his anemia, but he does have chronic anemia, and no active bleeding that I could see right now at least on the CAT scan, and clinically, but his Hemoccult stool was positive, his pressor requirements are increasing despite getting blood and FFP's and worried that there might be an active source of bleeding, that were missing, but like I said he is too unstable to be transferred if we were to transfer him now I think he would likely pass away and transfer ? Although thoughts of shock could be from cardiogenic shock, the cardiogenic shock could be from a cardiac event due to compromised coronary artery, it could be a cardiac arrhythmia that he suffered, or it could be from the anemia, I we will do a stat echocardiogram, assess EF, follow troponins, ? I was upfront and honest with patient's family, if he has had a cardiac event unfortunate I cannot anticoagulate him given his hemoglobin, his elevated INR ? I did discuss with family if there is any possibility he took too much of his Xarelto, but patient's denies this, she tells me that he did not take his Xarelto this morning, but again at other times is unsure if he did or did not she is very under shock, of the whole situation ? We will have to monitor him here, closely, and if I can stabilize him, we can certainly consider transferring him at a later time, once he is more hemodynamically stable, will watch him in the ICU ? Discussed risks and benefits, shared decision making, patient's family voiced understanding, voiced understanding, all questions answered, agreed to proceed to stay here at [facility], to stabilize, continue to monitor, continue resuscitative efforts, patient remains a full code, wants all interventions done Review of Systems General: Reports: ROS unobtainable due to endotracheal tube Medications/Allergies Home Medications Medication Instructions Recorded Confirmed Last Taken Type Inogen Portable Oxygen Concentrator #1 ea 08/02/22 10/08/23 Unknown Rx albuterol sulfate 2.5 mg/0.5 mL 5 mg inhalation Q6H PRN shortness 08/02/22 10/08/23 Unknown History solution for nebulization of breath or wheezing albuterol sulfate 90 mcg/actuation See Rx Instructions .Route 03/19/23 10/08/23 Unknown Rx aerosol inhaler (Ventolin HFA) .COMPLEX #108 grams rivaroxaban 20 mg tablet (Xarelto) 20 mg PO DAILY #30 tabs 06/04/23 10/08/23 Unknown Rx alprazolam 1 mg tablet 1 mg PO TID #90 tabs 09/06/23 10/08/23 Unknown Rx lovastatin 40 mg tablet See Rx Instructions .Route 09/07/23 10/08/23 Unknown Rx .COMPLEX #90 tabs tamsulosin 0.4 mg capsule See Rx Instructions .Route 09/07/23 10/08/23 Unknown Rx .COMPLEX #90 caps Allergies Allergy/AdvReac Type Severity Reaction Status Date / Time tramadol [From Ultram] Allergy Severe ALGY-Anaphy Verified 10/08/23 12:30 laxis gabapentin Allergy Intermediate ALGY-Hives Verified 10/08/23 12:30 PFSH Acute PFSH: Medical History COPD (chronic obstructive pulmonary disease) History of anxiety History of DVT (deep vein thrombosis) Methadone use Social History Smoking and tobacco/nicotine status: former use of tobacco/nicotine Alcohol intake: never Substance/Drug Use: never Vitals/I&O/Wt Last Vital Signs Temp 97.9 F 10/08/23 18:37 Pulse 72 10/08/23 18:45 Resp 16 10/08/23 19:44 BP 108/74 10/08/23 18:45 Pulse Ox 92 10/08/23 19:44 O2 Del Method Mechanical Ventilation 10/08/23 12:30 FiO2 100 10/08/23 19:44 10/08/23 10/08/23 10/08/23 06:59 14:59 22:59 Intake Total 753 / 753 374.731 / 1127.731 Balance 753 / 753 374.731 / 1127.731 Weight last 48 hrs Weight 74.843 kg Physical Exam Const: COMMON NORMALS: no acute distress OTHER: Intubated, sedated on mechanical ventilation, pupils minimally reactive to light, no corneal reflex does withdraw from pain, bites down in ET tube Neck/C-Spine: COMMON NORMALS: no JVD Resp: COMMON NORMALS: normal respiratory effort, No retractions, No use of accessory muscles and clear to auscultation bilaterally AUSCULTATION: clear to auscultation bilaterally Cardio: COMMON NORMALS: no JVD, regular rate, regular rhythm, S1 normal heart sound present and S2 normal heart sound present RATE: tachycardic RHYTHM: regular rhythm HEART SOUNDS: S1 normal heart sound present and S2 normal heart sound present GI: COMMON NORMALS: Normal to inspection, nondistended, normoactive bowel sounds present, Soft to palpation and non-tender Extremity: NARRATIVE EXTREMITY EXAM: 1+ pitting edema bilateral lower extremity Psych: COMMON NORMALS: mental status grossly normal Sepsis: Is patient septic: Yes Focused sepsis exam performed: Yes Focused sepsis exam: Mottling bilateral lower extremities, DP, PT pulses barely palpable, capillary refill greater than 3 seconds Data 10/08/23 12:24 10/08/23 12:24 Micro: Microbiology 10/08/23 12:24 Blood Culture - Preliminary Blood SPECIMEN COLLECTED 10/08/23 12:47 Blood Culture - Preliminary Blood SPECIMEN COLLECTED A&P Assessment and plan (1) Shock: (2) Cardiogenic shock: (3) Hemorrhagic shock: (4) Acute anemia: (5) GI bleed: (6) Elevated INR: (7) Lactic acidosis: (8) NSTEMI (non-ST elevated myocardial infarction): (9) Cardiac arrest: (10) Hypothermia: Plan Cardiac arrest episode -Detail around cardiac episode is not clear, were not sure if he lost a pulse, patient reports that he stopped breathing, CPR was given for 2 minutes per se, he was intubated in the field, will await further detail from EMS staff but exactly how patient presented in the field ? Etiology unclear, could be multifactorial, cardiac arrhythmia, acute cardiac event, hemorrhagic shock, shock Acute hypoxic respiratory failure Plan ? Currently intubated, sedated on mechanical ventilation, ? Minimize tidal volume, minimize FiO2, ? Fentanyl, Versed, Precedex for sedation, ? Monitor respiratory status closely, ? Monitor for fluid overload, monitor for TRALI Shock, multifactorial cardiogenic versus hemorrhagic versus sepsis Plan ? Currently on 3 pressors, Levophed, dopamine, vasopressin -Echocardiogram ordered, will see what EF shows, will consider dobutamine ? Status post 3 units PRBC, 2 units FFP, recheck hemoglobin and INR stat, -We will see if hemoglobin has improved, INR is improved, we will see if he needs more transfusions of PRBC, FFP ? CT of chest abdomen pelvis did not show any acute evidence of infection, no pneumonia, no GI bleed, ? Will start on broad-spectrum antibiotic therapy vancomycin, Zosyn, ? Monitor hemodynamics closely, transfuse PRBC as needed, continue fluid therapy, continue pressor therapy, Acute on chronic anemia, hemoglobin chronically between 7-8, ? Hemoccult stool was positive in the emergency room, ? Currently 3.4 status post transfusion of PRBC, ? Check ferritin, iron, Concerns for GI bleed, hemorrhagic shock, ? Currently patient is unstable for transfer to tertiary level center, ? If patient is more clinically stable can consider EGD here but if he is more stable and continues to have anemia he might need to be transferred to tertiary level center for GI evaluation IR evaluation, ? Continue transfusion protocol, continue pressors as above, continue to monitor hemodynamically carefully, MAP greater than 65, ? Protonix drip, Carafate ? Patient's son does report 1 episode of hematemesis a few weeks ago started on octreotide NSTEMI, ? Serial EKGs, short troponins, telemetry monitoring, cardiac echo, ? Type I versus type II, ? Cardiac event versus anemia as an etiology ? Cannot anticoagulation given anemia, ? We will monitor ? ER provider reached out to cardiology about EKG changes, given anemia, etiology behind EKG changes elevated troponins, is likely related to his anemia and shock, once hemodynamically stable, can consider further cardiac evaluation Elevated INR 11, ? Patient's family is adamant that he has not taken more than prescribed of Xarelto, ? Has received 2 units FFP, - can consider Andexxa based upon repeat hemoglobin and INR COLIN likely secondary to shock, monitor urine output Lactic acidosis, from shock as above, Hypoalbuminemia, will replace IV Patient had right hip dislocation, reduced by ER provider CT does show complete atelectasis left lower lobe, will continue to monitor, antibiotics as above, DuoNeb Attestations Medical Necessity Statement*: Patient requires hospitalization, for shock, multifactorial, cardiogenic, hemorrhagic, GI bleed, elevated INR, NSTEMI, acute anemia, cardiac arrest Coding Level of Care Code Critical Care >/= 30 minutes Critical care time (in minutes): 60 The high probability of a clinically significant, sudden or life threatening deterioration, as referenced in this documentation, required my full and direct attention, intervention and personal management. The critical care time shown is in addition to time spent performing any reported separately billable procedures and includes the following: [x] Data and vital sign review and interpretation [x] Patient assessment, examination and intervention [x] Medication orders and management [x] Patient/Family updates as able [x] Care Coordination and Documentation. Diagnoses Shock R57.9 Cardiogenic shock R57.0 Hemorrhagic shock R57.8 Acute anemia D64.9 GI bleed K92.2 Elevated INR R79.1 Lactic acidosis E87.20 NSTEMI (non-ST elevated myocardial infarction) I21.4 Cardiac arrest I46.9 Hypothermia T68.XXXA
--- NOTE | 2023-10-08 21:05 | PC.NURSE ---
Last vitals listed in the ER for blood administration 1836. Vitals documented in [facility]AR when patient arrived in ICU
[2023-10-08] MEDS: dexmedeTOMIDine 0.9 % NaCL 400 MCG/100 ML PREMIX IV (21:35)
[2023-10-08] MEDS: octreotide 500 MCG in sodium chloride 0.9% (100 ml) 100 ML 10.1 MCG IV (21:36)
[2023-10-08] MEDS: sodium chloride 0.9% 1,000 ML 100 ML IV (21:36)
[2023-10-08] MEDS: tranexamic acid 1,000 MG/100 ML PREMIX 12.5 MG IV (21:36)
[2023-10-08] MEDS: pantoprazole 40 MG in sodium chloride 0.9% (plus) 100 ML 20 MG IV (21:36)
--- NOTE | 2023-10-08 21:36 | PC.PHAR ---
Pharmacokinetic dosing service Date: 10/08/23 Time: 2199 Objective: Patient: Morris Levin Floor: ICU-11 Age: 73 yo Serum creatinine: 1.6 mg/dL Height: 72.0 Inches Weight (kg): 77.11 Diagnosis: Relevant medical/social history: Cultures and sensitivities: Other labs: Assessment: IBW (kg): 77.60 Dosing wt(kg): 77.11 Estimated Creatinine clearance (ml/min): 45.5 CRCL method: Cockcroft and Gault using ibw(default). Drug selected: Vancomycin Loading dose (mg): 0 Vd (liters): 69.4 (factor used: 0.9 L/kg) Jones (hr-1): 0.042 Half life (hrs): 16.50 Recommended dose: 1500 mg Interval: 24 hrs Infusion time (hrs): 1.5 Predicted peak (mcg/mL): 33.0 Predicted trough (mcg/mL): 12.83 Total body weight is being used for vancomycin dosing. Renal function is stable [ ] /unstable [ ] Recommendations: Give Vancomycin 1500 mg q 24 hrs with an expected Cpeak of 33.0 mcg/ml and an expected Ctrough of 12.83 mcg/ml Renal dosing of other antibiotics (review renal dosing of other medications and list guidelines here): Thank you for the consult, will continue to follow. Signature: Amy Vences [facility]
[2023-10-08] MEDS: sucralfate 1 gm Tablet PO (21:46)
[2023-10-08] MEDS: norepinephrine 4 MG/250 ML BAG 63.75 MG IV (22:29)
[2023-10-08] MEDS: vancomycin 1,500 MG/300 ML PIGGYBACK 200 MG IV (23:00)
[2023-10-08] MEDS: ipratropium-albuterol 3 mL Neb INHALATION (23:38)
[2023-10-08] MEDS: FUROsemide 10 mg/mL SDV 2mL 20 MG IVP (23:54)
[2023-10-09] VITALS (194 sets, daily range): BP systolic 45–164; BP diastolic 29–88; PULSE 0–124; RESP 14–30; TEMP 35.6–36.9; O2SAT 58–99
[2023-10-09] MEDS: DOPamine drip 400 MG/250 ML PREMIX 28.07 MG IV ×2 (00:01→06:24)
[2023-10-09] MEDS: fentaNYL 1,000 MCG/100 ML BAG 12.5 MCG IV (00:28)
[2023-10-09 00:47] LABS: Hematocrit 21.5 % (37-53)
[2023-10-09 01:15] LABS: Cortisol Random 15.48 ug/dL (2.47-19.5); Thyroid Stimulating Hormone 0.12 uIU/mL (0.27-4.20)
[2023-10-09 01:20] LABS: INR 7.04 (0.8-1.2); Lactate (Lactic Acid level) 4.4 mmol/L (0.5-2.2); Troponin 5 6HR 192.1 ng/L (0-15)
[2023-10-09] MEDS: pantoprazole 40 MG in sodium chloride 0.9% (plus) 100 ML 20 MG IV ×3 (02:19→10:52)
[2023-10-09] MEDS: albumin 25 G/100 ML BAG 60 G IV ×2 (02:19→10:26)
[2023-10-09] MEDS: norepinephrine 4 MG/250 ML BAG 63.75 MG IV ×2 (02:20→06:19)
[2023-10-09] MEDS: sucralfate 1 gm Tablet PO ×2 (02:33→08:29)
[2023-10-09] MEDS: ipratropium-albuterol 3 mL Neb INHALATION ×3 (03:30→12:33)
[2023-10-09] MEDS: dexmedeTOMIDine 0.9 % NaCL 400 MCG/100 ML PREMIX 13.1 MCG IV ×2 (04:54→12:29)
[2023-10-09 05:08] LABS: ABG PCO2 45.3 mmHg (35-45); ABG PH Result 7.42 (7.35-7.45); Arterial Blood Gas Hematocrit 21.8 % (42-52); Base Excess ABG 4.7 mmol/L (-2.0-2.0); Blood Gas Allen Test Pos; Blood Gas Sample Site Radial, left; Blood Gas Sample Type Arterial; HCO3 ABG 29.6 mmol/L (22-26); Oxygen Device VENT; PO2 ABG 56.1 mmHg (80.0-100.0); PO2 FiO2 Ratio Arterial Blood 0
[2023-10-09 05:42] LABS: Bacillus cereus group Not Detected (NOT DETECT); Bacillus subtillis group Not Detected (NOT DETECT); Corynebacterium Not Detected (NOT DETECT); Cutibacterium acnes (P.acnes) Not Detected (NOT DETECT); Enterococcus Not Detected (NOT DETECT); Enterococcus faecalis Not Detected (NOT DETECT); Enterococcus faecium Not Detected (NOT DETECT); Lactobacillus species Not Detected (NOT DETECT); Listeria Not Detected (NOT DETECT); Listeria monocytogenes Not Detected (NOT DETECT); Micrococcus Not Detected (NOT DETECT); Pan Candida Not Detected (NOT DETECT); Pan Gram-Negative Not Detected (NOT DETECT); Staphylococcus epidermidis Not Detected (NOT DETECT); Staphylococcus lugdunensis Not Detected (NOT DETECT); Staphylococcus species Not Detected (NOT DETECT); Streptococcus agalactiae Not Detected (NOT DETECT); Streptococcus anginosus group Not Detected (NOT DETECT); Streptococcus pneumoniae Not Detected (NOT DETECT); Streptococcus pyogenes Not Detected (NOT DETECT); Streptococcus species Not Detected (NOT DETECT)
[2023-10-09] MEDS: piperacillin-tazobactam 3.375 GM in sodium chloride 0.9% (plus) 50 ML IV (06:17)
[2023-10-09] MEDS: octreotide 500 MCG in sodium chloride 0.9% (100 ml) 100 ML 10.1 MCG IV (06:19)
[2023-10-09] MEDS: midazolam hcl 100 MG/100 ML BAG 6 MG IV (06:37)
--- NOTE | 2023-10-09 07:00 | XRR_ITS ---
PROCEDURE INFORMATION: Exam: XR Chest Exam date and time: 10/09/2023 8:08 AM Age: 73 years old Clinical indication: Shortness of breath; Patient HX: SOB, cardiac arrest TECHNIQUE: Imaging protocol: Radiologic exam of the chest. Views: 1 view. COMPARISON: CT chest abdpel w/*[id number] 10/08/2023 3:28 PM FINDINGS: Lungs: Interval total opacification of the left hemithorax. Mild infiltrate developing in the right lung. Extensive infiltrate developing on the right. Pleural spaces: Blunted right costophrenic angle. Heart/Mediastinum: Unremarkable. No cardiomegaly. Bones/joints: Unremarkable. Other findings: Stable life support lines. XR/XR chest 1V portable 22000 IMPRESSION: 1. No acute findings. 2. Opacified left hemithorax.
--- NOTE | 2023-10-09 07:03 | W.PM.EVENTAC ---
Event Notes Attestations Time Spent in Patient Care: Had a detailed discussion with the family, 2 sons at the bedside They are okay with current management however want to start comfort care as soon as patient starts showing signs of deterioration We will change CODE STATUS to DNR/DNI for now
[2023-10-09] MEDS: fentaNYL 1,000 MCG/100 ML BAG 15 MCG IV (07:18)
[2023-10-09 08:46] LABS: Reflex FDPQ test REFLEX FDP QUEST TES
[2023-10-09 08:50] LABS: Basophils # 0.1 10^3/uL (0.0-0.1); Basophils % 0.6 %; Eosinophils # 0.1 10^3/uL (0.0-0.8); Eosinophils % 0.5 %; Hematocrit 23.9 % (37-53); Lymphocytes # 2.8 10^3/uL (0.8-4.8); Lymphocytes % 15.3 %; Mean Corpuscular HGB Conc 31.8 g/dL (30-55); Mean Corpuscular Hemoglobin 24.7 pg (27-33); Mean Corpuscular Volume 77.6 fl (82-101); Monocytes # 0.6 10^3/uL (0.2-0.9); Monocytes % 3.4 %; Neutrophils # 14.68 10^3/uL (1.8-7.7); Neutrophils % 79.1 %; Nucleated Red Blood Cells # 5.9 /100WBC; Nucleated Red Blood Cells % 31.9 %; Platelet Count 185 10^3/cmm (157-399); Red Blood Count 3.08 10^6/uL (3.85-5.65); Red Cell Distribution Width 22.7 % (12.1-15.1); White Blood Count 18.57 10^3/uL (3.29-11.43)
[2023-10-09 09:02] LABS: Fibrinogen 234 mg/dL (174-498); Partial Thromboplastin Time 40.9 SECONDS (23.9-36.7)
[2023-10-09 09:09] LABS: Alanine Aminotransferase 30 U/L (0-41); Albumin Level 2.1 g/dL (3.5-5.2); Alkaline Phosphatase 60 U/L (40-130); Anion Gap 15.3 (5-19); Aspartate Amino Transferase 33 U/L (0-40); Blood Urea Nitrogen 31 mg/dL (8-23); C Reactive Protein 198.1 mg/L (0.0-4.9); Calcium 7.2 mg/dL (8.5-10.5); Carbon Dioxide 26 mmol/L (22-29); Chloride 106 mmol/L (98-107); Globulin 3.5 g/dL (1.3-4.6); Glucose 129 mg/dL (65-115); Magnesium 2.1 mg/dL (1.7-2.3); Osmolality Calculated 306 mOsm/kg (285-295); Phosphorus 2.6 mg/dL (2.5-4.5); Potassium 3.3 mmol/L (3.5-5.1); Sodium 144 mmol/L (136-145); Total Bilirubin 5.3 mg/dL (0.15-1.2); Total Protein 5.6 g/dL (6.6-8.7)
[2023-10-09 09:11] LABS: D Dimer 8.33 ug/mLFEU (0-0.59)
[2023-10-09 09:13] LABS: Lactate (Lactic Acid level) 4.6 mmol/L (0.5-2.2)
[2023-10-09 09:15] LABS: Ferritin 79 ng/mL (30-400); Iron 46 ug/dL (59-158)
[2023-10-09 09:46] LABS: Slide Review Slide Review Perform
--- NOTE | 2023-10-09 10:15 | PC.NURSE ---
placed by CK Reyes from ICU and her student
[2023-10-09] MEDS: norepinephrine 4 MG/250 ML BAG 56.25 MG IV (10:20)
[2023-10-09 11:24] LABS: Bacillus cereus group Not Detected (NOT DETECT); Bacillus subtillis group Not Detected (NOT DETECT); Corynebacterium Not Detected (NOT DETECT); Cutibacterium acnes (P.acnes) Not Detected (NOT DETECT); Enterococcus Not Detected (NOT DETECT); Enterococcus faecalis Not Detected (NOT DETECT); Enterococcus faecium Not Detected (NOT DETECT); Lactobacillus species Not Detected (NOT DETECT); Listeria Not Detected (NOT DETECT); Listeria monocytogenes Not Detected (NOT DETECT); Micrococcus Not Detected (NOT DETECT); Pan Candida Not Detected (NOT DETECT); Pan Gram-Negative Not Detected (NOT DETECT); Staphylococcus epidermidis Not Detected (NOT DETECT); Staphylococcus lugdunensis Not Detected (NOT DETECT); Staphylococcus species Not Detected (NOT DETECT); Streptococcus agalactiae Not Detected (NOT DETECT); Streptococcus anginosus group Not Detected (NOT DETECT); Streptococcus pneumoniae Not Detected (NOT DETECT); Streptococcus pyogenes Not Detected (NOT DETECT); Streptococcus species Detected (NOT DETECT)
--- NOTE | 2023-10-09 13:09 | PC.NURSE ---
I was asked by Dr. Carolina to witness and support the family of the patient during the decision-making process of comfort care vs continuing with life-saving measures. Dr. Carolina explained the risks and benefits of both, but that the patient would ultimately have poor qualify of life if life-saving measures continued and a chest tube placed as indicated by CXR and patient's condition. Family present include spouse, [id number], and multiple children/grandchildren. All are visibly upset, patient's spouse had difficulty understanding at first what the process would be, but was able to repeat the risks and benefits of both options. She ultimately decided that they would like to be present with the patient at this time and would let Dr. Carolina know when they were ready to extubate patient. Dr. Carolina and myself reassured them that patient would be kept comfortable and family could be present as he will likely pass quickly. They were appreciative and denied further questions/concerns at this time.
--- NOTE | 2023-10-09 13:36 | PC.NURSE ---
Notified [facility] of withdrawal of care for patient per family. [facility] artist representative stated patient was NOT a candidate. Spoke with Shamar from [facility]
[2023-10-09] MEDS: LORazepam 2 mg/mL INJ 1 mL IVP ×3 (14:01→15:06)
[2023-10-09] MEDS: atropine 1% op soln 2 mL Btl 3 DROP SUBLINGUAL (14:01)
--- NOTE | 2023-10-09 14:07 | PC.NURSE ---
Addendum entered by Amy Hickman RN 10/09/23 14:52: 1353 was time of extubation Original Note: Patient terminally extubated per RT and Dr. Khan orders via family wishes. Comfort care only given at this time
[2023-10-09] MEDS: morphine 10 mg/0.5 mL oral liq UD SUBLINGUAL ×2 (14:26→14:46)
--- NOTE | 2023-10-09 14:42 | P.PN_ITS ---
Subjective Subjective: ? Patient was examined multiple times throughout the morning, with family meeting early in the afternoon, ? Patient was seen early in the morning, patient's son is at bedside, he was on 3 pressors of overnight, continues to dopamine, Levophed at 15, vasopressin, hemoglobin 6.4, INR 5.6, he is on 100% FiO2, chest x-ray shows complete whiteout of left lung, lactic acid is 4.6, creatinine 1.6 ? He is currently sedated, currently has mild mottling of bilateral lower extremities, DP PT pulses are barely palpable, cap refill greater than 3 seconds ? Pupils are constricted, nonreactive to light, ? On 100% FiO2 ? On octreotide drip, Protonix drip, Carafate, ? Has dark red blood output from a oral gastric tube ? I did discussion with patient's son, at bedside, patient remains critically ill, overall his prognosis is poor, remains on 3 pressors, concern is for upper GI bleed, with persistent bleeding, hemorrhagic shock, and a component of cardiogenic shock the thought is that he likely had chronic anemia, and has been weak for the last month, son does report an episode of hematemesis,, his Hemoccult stool was positive, then likely what happened yesterday is is that due to chronic anemia, worsening anemia, and developing of hemorrhagic shock, he had an acute cardiac event, possible significant aspiration event, requiring chest compressions, and intubation, he could have also had a cardiac event in isolation, given his elevated troponins, ? I spoke to pulmonary, patient has complete whiteout of the left lung, concerns for hemothorax, will need a bronchoscopy, will need a chest tube ? I discussed with patient's son about goals of care, patient son said that they had a family meeting last night, and patient was made DNR/DNI, however their mom is still hoping that he will survive, he tells me that him and the rest of the siblings know that Morris is likely going to succumb to his acute illness, and likely , and they do not want him to suffer, they want all these inte rventions to be stopped, however they are waiting on their mother to make that decision ? I spoke to patient's over the phone, as it was 11, and she was not at the hospital, I discussed patient's clinical status, the new developments over the left hemothorax, possibly requiring chest tube placement, need for bronchoscopy, need for further aggressive interventions further transfusions, further interventions, she tells me that Morris has always tell her that he does not want to suffer and does not want to remain a vegetable, and she does not want him to suffer, but she wants to see him, she wants to read the Bible to him, before he passes on ? Patient's is at bedside, I spoke to her in detail, about findings as above, she does not want to speak to me in front of Morris, ? I had a family meeting with patient's , patient's 2 sons, nursing staff about overall goals of care, ? I advised patient's family that the likelihood of having a meaningful recovery is fairly unlikely, that at baseline he has a poor level of functioning, and that for him to regain that function is fairly unlikely, currently he is in multiorgan failure continues to have evidence of hemorrhagic shock is on multiple pressors, he has 100% oxygen requirements, will need to put in a chest tube ? In order to give him all the chances for survival related to have to manage him appropriately including chest tube, pulmonary consultation, general surgery consultation for EGD, further transfusions, and to give him time ? The other option would be to ease his pain and ease his suffering allow him to pass away comfortably, ? I presented all options available to patient , including continue medical interventions, consulting general surgery, pulmonary, placing chest tube, continue transfusions, giving him time versus easing his pain easing suffering allowing him to pass away comfortably, ? I advised patient's that she knows Morris well, will with Morris today if I were speaking with him, what would be his wishes and she tells me that he would never want to live like this, he would never want to suffer, she does not want him to suffer, she just wants him to be comfortable, he would never want to be a vegetable like this she tells me ? I advised patient's that all the interventions currently are supportive interventions, if we gave him time there is a possibility that he might come off these interventions, these pressors, the ventilator but it would be a prolonged hospital course it could be weeks before he might come off the ventilator, it might be days before he comes off pressors, and he is going to need more extensive evaluations including chest tube, pulmonary eval, EGD and colonoscopy possible transfer to tertiary level center for concern sideration of IR intervention for his bleeding, he might need cardiac catheterization given his elevated troponins ? The other option would be to ease his pain and ease his suffering and allow him to possibly comfortably ? After discussing the risks and benefits of all options, she voiced understanding, all questions answered, agreed to proceed with comfort care, ? Patient's sons at bedside agree with comfort care, ? I advised patient and her family they he can spend as much as times as a want with Morris, and when they are ready we will start the comfort care process, ? Patient was again seen in the afternoon, patient's tells me that she is ready, patient's family stepped out of the room, patient was terminally extubated to 2 L, pressors were stopped, started comfort care medications, family allowed back in the room Vitals/I&O/Wt Last Vital Signs Temp 98.4 F 10/09/23 12:23 Pulse 85 10/09/23 14:05 Resp 23 H 10/09/23 13:30 BP 67/42 10/09/23 14:05 Pulse Ox 63 L 10/09/23 14:05 O2 Del Method Mechanical Ventilation 10/09/23 12:37 FiO2 100 10/09/23 12:37 10/08/23 10/09/23 10/09/23 22:59 06:59 14:59 Intake Total 1101.642 / 2315.624 7985.459 / 6234.101 2966.094 / 2966.094 Output Total 650 / 650 Balance 1101.642 / 6942.359 5266.459 / 5584.101 2966.094 / 2966.094 Weight last 48 hrs Weight 77.564 kg Weight 77.111 kg Weight 74.843 kg Physical Exam Const: COMMON NORMALS: no acute distress Resp: COMMON NORMALS: normal respiratory effort, No retractions and No use of accessory muscles AUSCULTATION: crackles and wheezes Cardio: COMMON NORMALS: regular rate, regular rhythm, S1 normal heart sound present and S2 normal heart sound present RATE: regular rate RHYTHM: regular rhythm HEART SOUNDS: S1 normal heart sound present and S2 normal heart sound present GI: COMMON NORMALS: Normal to inspection, nondistended, normoactive bowel sounds present and non-tender Extremity: COMMON NORMALS: no pedal edema Urinary Catheter Management: Chacko: Cath Placed During This Visit: yes Urinary Catheter Date of Insertion: 10/08/23 Urinary Catheter Time of Insertion: 12:20 Data 10/09/23 08:38 10/09/23 08:38 Micro: Microbiology 10/08/23 12:47 Blood Culture - Preliminary Blood 10/08/23 12:24 Blood Culture - Preliminary Blood A&P Assessment and plan (1) Shock: (2) Cardiogenic shock: (3) Hemorrhagic shock: (4) Acute anemia: (5) GI bleed: (6) Elevated INR: (7) Lactic acidosis: (8) NSTEMI (non-ST elevated myocardial infarction): (9) Cardiac arrest: (10) Hypothermia: (11) Need for comfort care: (12) Dislocation of right hip: (13) COPD (chronic obstructive pulmonary disease): (14) Ischemia due to increased oxygen demand: (15) Hemothorax: Plan Proceeding with comfort care, start comfort care orders Cardiac arrest episode -Detail around cardiac episode is not clear, were not sure if he lost a pulse, patient reports that he stopped breathing, CPR was given for 2 minutes per se, he was intubated in the field, will await further detail from EMS staff but exactly how patient presented in the field ? Etiology unclear, could be multifactorial, cardiac arrhythmia, acute cardiac event, hemorrhagic shock, shock Acute hypoxic respiratory failure Plan ? Currently intubated, sedated on mechanical ventilation, ? Minimize tidal volume, minimize FiO2, ? Fentanyl, Versed, Precedex for sedation, ? Monitor respiratory status closely, ? Monitor for fluid overload, monitor for TRALI Shock, multifactorial cardiogenic versus hemorrhagic versus sepsis Plan ? Currently on 3 pressors, Levophed, dopamine, vasopressin -Echocardiogram ordered, will see what EF shows, will consider dobutamine ? Status post 3 units PRBC, 2 units FFP, recheck hemoglobin and INR stat, -We will see if hemoglobin has improved, INR is improved, we will see if he needs more transfusions of PRBC, FFP ? CT of chest abdomen pelvis did not show any acute evidence of infection, no pneumonia, no GI bleed, ? Will start on broad-spectrum antibiotic therapy vancomycin, Zosyn, ? Monitor hemodynamics closely, transfuse PRBC as needed, continue fluid ther apy, continue pressor therapy, Acute on chronic anemia, hemoglobin chronically between 7-8, ? Hemoccult stool was positive in the emergency room, ? Currently 3.4 status post transfusion of PRBC, ? Check ferritin, iron, Concerns for GI bleed, hemorrhagic shock, ? Currently patient is unstable for transfer to tertiary level center, ? If patient is more clinically stable can consider EGD here but if he is more stable and continues to have anemia he might need to be transferred to tertiary level center for GI evaluation IR evaluation, ? Continue transfusion protocol, continue pressors as above, continue to monitor hemodynamically carefully, MAP greater than 65, ? Protonix drip, Carafate ? Patient's son does report 1 episode of hematemesis a few weeks ago started on octreotide NSTEMI, ? Serial EKGs, short troponins, telemetry monitoring, cardiac echo, ? Type I versus type II, ? Cardiac event versus anemia as an etiology ? Cannot anticoagulation given anemia, ? We will monitor ? ER provider reached out to cardiology about EKG changes, given anemia, etiology behind EKG changes elevated troponins, is likely related to his anemia and shock, once hemodynamically stable, can consider further cardiac evaluation Elevated INR 11, ? Patient's family is adamant that he has not taken more than prescribed of Xarelto, ? Has received 2 units FFP, - can consider Andexxa based upon repeat hemoglobin and INR COLIN likely secondary to shock, monitor urine output Lactic acidosis, from shock as above, Hypoalbuminemia, will replace IV Patient had right hip dislocation, reduced by ER provider CT does show complete atelectasis left lower lobe, will continue to monitor, antibiotics as above, DuoNeb Attestations Medical Necessity Statement*: Patient requires hospitalization for multiorgan failure, hemorrhagic shock, shock, NSTEMI, upper GI bleed, acute hypoxic respiratory failure, hemothorax multiple pressor requirements, proceeding with comfort care Coding Level of Care Code Critical Care >/= 30 minutes Critical care time (in minutes): 60 The high probability of a clinically significant, sudden or life threatening deterioration, as referenced in this documentation, required my full and direct attention, intervention and personal management. The critical care time shown is in addition to time spent performing any reported separately billable procedures and includes the following: [x] Data and vital sign review and interpretation [x ] Patient assessment, examination and intervention [x] Medication orders and management [x] Patient/Family updates as able [x] Care Coordination and Documentation. Diagnoses Shock R57.9 Cardiogenic shock R57.0 Hemorrhagic shock R57.8 Acute anemia D64.9 GI bleed K92.2 Elevated INR R79.1 Lactic acidosis E87.20 NSTEMI (non-ST elevated myocardial infarction) I21.4 Cardiac arrest I46.9 Hypothermia T68.XXXA Need for comfort care Dislocation of right hip S73.004A COPD (chronic obstructive pulmonary disease) J44.9 Ischemia due to increased oxygen demand I24.89 Hemothorax J94.2
[2023-10-09] MEDS: morphine 4 mg/mL SDV 1 mL 2 MG IVP ×2 (14:46→15:05)
--- NOTE | 2023-10-09 15:17 | PC.NURSE ---
TOD 1504. Dr. Carolina aware
--- NOTE | 2023-10-09 16:01 | PC.NURSE ---
MTS called again with official TOD, patient still ruled out and not a candidate. Awaiting Saving Site call
--- NOTE | 2023-10-09 16:34 | PC.NURSE ---
Saving site released patient. Patient being transferred to [facility] [place].
--- NOTE | 2023-10-09 18:23 | USCV_ITS ---
Morris Levin Age: 73 Gender: M : 1950 Exam Date: 10/09/2023 02:00 Ordering Phys: Sharif Carolina MD Technologist: JULIO C [place] [facility] [place]ication: assess for DVT. Patient is on vent in ICU-11. No history available. HISTORY: assess for DVT. Patient is on vent in ICU-11. No history available. PROCEDURES: Venous duplex imaging was performed in bilateral lower extremities. The following venous structures were evaluated: common femoral vein, profunda vein, proximal portion of the greater saphenous vein, superficial femoral vein, and the popliteal vein. In addition, the posterior tibial veins were evaluated. Serial compression, augmentation maneuvers, and spectral Doppler flow evaluation were performed. Bilateral venous compartments are highly pulsatile, which can be seen with CHF or venous compartment overload. Compression maneuvers were normal. Augmentation maneuvers were normal. It is noted in the RIGHT lower extremity from mid-thigh level and inferior, that the veins are relatively small, and smaller than the accompanying arteries. This appearance can be seen in patients with prior, old DVTs. Bilaterally, the common femoral, superficial femoral, profunda femoral, popliteal, posterior tibial, and greater saphenous veins, and were identified and interrogated in the standard fashion. These veins were found to be easily compressible with spontaneous blood flow. No evidence of acute thrombus noted. CONCLUSIONS No evidence of right lower extremity DVT. No evidence of left lower extremity DVT. Right lower extremity veins are small likely due to prior chronic DVT Zev Goldman MD (Electronically Signed) Final Date: 09 October 2023 09:06 S
--- NOTE | 2023-10-10 02:49 | PC.NURSE ---
[facility]
--- NOTE | 2023-10-17 08:51 | P.DES_ITS ---
Discharge Providers DDS Date of Admission: 10/08/23 18:52 Date Summary Completed: 10/27/23 Attending Provider at Admission: Sharif Carolina MD Time of : 15:04 Attending Provider at Discharge: Sharif Carolina MD Primary Care Provider: Hussein Hall MD DS Diagnoses Hospital Diagnoses (1) Shock: (2) Cardiogenic shock: (3) Hemorrhagic shock: (4) Acute anemia: (5) GI bleed: (6) Elevated INR: (7) Lactic acidosis: (8) NSTEMI (non-ST elevated myocardial infarction): (9) Cardiac arrest: (10) Hypothermia: (11) Need for comfort care: (12) Dislocation of right hip: (13) COPD (chronic obstructive pulmonary disease): (14) Ischemia due to increased oxygen demand: (15) Hemothorax: Reason for Visit Reason for Visit Cardiac Arrest Summary Date and Time of Date of : 10/09/23 Time of : 15:04 Summary Summary: Morris Levin is a 73 year old male with a past medical history of DVT, on Xarelto, history of COPD, on 2 L, history of methadone use, chronic anxiety, chronic anemia, who presents to [facility] due to cardiac arrest episode. Currently patient is intubated, sedated, mechanical ventilation, pupils are equal round minimally reactive to light, no corneal reflex, but he does bite down on the ET tube, he does localize pain, he does thrash his head, he is on fentanyl and Versed for sedation, currently on 10 of Levophed, on dopamine, he has received 3 units of blood, 2 units of FFP, patient's family is at bedside patient's is at bedside. The history that I got from patient's is fairly limited, she is in shock, at times of not able to get a straightforward history from her but I did the best I could, and family members at bedside failed then. According to patient's family, patient's , patient has been sick for the last month or so, he has not had any complaints per se, but has not been doing well, he has been less mobile, has been more bedbound, requiring assistance more for activities of daily living, his functionality has been decreasing, he might have had an episode of hematemesis a few weeks ago, family denies any episodes of bloody or black stools, patient's tells me that he is always anemia, and that he always has lower extremity edema, that is not nothing new. Patient woke up this morning, he was not feeling well, did not have breakfast, according to patient's son, they were very concerned about him, this morning, so they are willing to take him to the hospital, when suddenly patient became unresponsive became limp, patient's tells me that he got CPR for about 2 minutes, from her, I was unable to get a clear answer from her if he had a pulse or not, she tells me that he was in breathing, he was not responding so she did CPR, according to nursing staff, patient arrived via EMS in respiratory distress, intubated, only responding to painful stimuli, he had received 30 of etomidate, 5 mcg of epi, PEEP of 10, vent was in place, patient did not receive CPR in the emergency room, he was hypotensive, requiring fluids, he was found to have ST elevations in the anterior leads, which were discussed with cardiology by ER provider, baseline troponin 236, he was given loading dose of Plavix, he was heparinized, patient's lab work came back, his INR was 11, hemoglobin was 3.4 lactic acid 7.5, he is received 3 units of blood, 2 units of FFP, currently on Levophed, dopamine, intubated, sedated on Versed, fentanyl, but like above does bite down on the ET tube, does withdraw from pain,. Patient developed persistent hypotensive episodes in the emergency room, so I had nursing staff start him on vasopressin increase Levophed to 15. Give him a fluid bolus, recheck, CBC and INR stat. He does have mottling of bilateral lower extremities, DP PT pulses barely palpable, capillary refill greater than 3 seconds, he has mottling up to the level of bilateral knees. Tachycardic, heart rates in the 110s, sinus rhythm, he is hypothermic, and a bear hugger. Rectal exam showed that Hemoccult stool was positive. No blood from ET tube. No active bleeding per rectum, on examination, no active bleeding from the mouth, abdomen soft, benign, no guarding, no rebound, no rigidity, CT scan abdomen pelvis with IV contrast reveals no acute source of bleeding. -I had a detailed discussion with patient's and family at bedside, ? There is disagreement about goals of care, patient's tells me that she wants everything to be done for her , she wants us to continue intubation she wants us to continue CPR if needed, she wants him to remain a full code, ? I had a detailed discussion about patient's critical status, he is currently on 3 pressors, intubated, currently in shock, his prognosis is poor, status is critical, she wants us to continue all medical intervention, ? Patient's sons at bedside, disagree, they tell me that Morris has not been doing well for the last year, he has been slowly declining in his decline has more rapidly progressed in the last month, that he is not moved much in the last few weeks, he requires total assistance activities of daily living, they are not too keen on having aggressive interventions, they joke with me that what if they could lock up their mom, could we then make decisions for her dad, they want to stop all aggressive interventions, -I advised family that currently patient's next of kin is his , and she will be making all the medical decisions, certainly their input is very important, their mother is going through a lot, and I cannot imagine what she is going through, and the decisions that she has to undergo, but being supportive and helping her in the decision making would be most align with respecting patient's overall goals of care, ? I again multiple times discussed goals of care with patient's , for now patient is a full code she wants all interventions, ? I had a detailed discussion with her about my concern of concerns for shock, patient might be undergoing a GI bleed, currently he is too unstable to be transferred to tertiary level center as he is on 3 pressors, if I can stabilize him we could see if he could be a candidate to be transferred to tertiary level center which he could have evaluation by GI team, IR to find the source of his anemia source of his bleeding, ? Currently I have many thoughts on what is going on ? Certainly patient has shock, the etiology by the shock could be multifactorial, 1 component could be hemorrhagic shock given his anemia, but he does have chronic anemia, and no active bleeding that I could see right now at least on the CAT scan, and clinically, but his Hemoccult stool was positive, his pressor requirements are increasing despite getting blood and FFP's and worried that there might be an active source of bleeding, that were missing, but like I said he is too unstable to be transferred if we were to transfer him now I think he would likely pass away and transfer ? Although thoughts of shock could be from cardiogenic shock, the cardiogenic shock could be from a cardiac event due to compromised coronary artery, it could be a cardiac arrhythmia that he suffered, or it could be from the anemia, I we will do a stat echocardiogram, assess EF, follow troponins, ? I was upfront and honest with patient's family, if he has had a cardiac event unfortunate I cannot anticoagulate him given his hemoglobin, his elevated INR ? I did discuss with family if there is any possibility he took too much of his Xarelto, but patient's denies this, she tells me that he did not take his Xarelto this morning, but again at other times is unsure if he did or did not she is very under shock, of the whole situation ? We will have to monitor him here, closely, and if I can stabilize him, we can certainly consider transferring him at a later time, once he is more hemodyn amically stable, will watch him in the ICU ? Discussed risks and benefits, shared decision making, patient's family voiced understanding, voiced understanding, all questions answered, agreed to mark anthony franz to stay here at [facility], to stabilize, continue to monitor, continue resuscitative efforts, patient remains a full code, wants all interventions done ? Patient was examined multiple times throughout the morning, with family meeting early in the afternoon, ? Patient was seen early in the morning, patient's son is at bedside, he was on 3 pressors of overnight, continues to dopamine, Levophed at 15, vasopressin, hemoglobin 6.4, INR 5.6, he is on 100% FiO2, chest x-ray shows complete whiteout of left lung, lactic acid is 4.6, creatinine 1.6 ? He is currently sedated, currently has mild mottling of bilateral lower extremities, DP PT pulses are barely palpable, cap refill greater than 3 seconds ? Pupils are constricted, nonreactive to light, ? On 100% FiO2 ? On octreotide drip, Protonix drip, Carafate, ? Has dark red blood output from a oral gastric tube ? I did discussion with patient's son, at bedside, patient remains critically ill, overall his prognosis is poor, remains on 3 pressors, concern is for upper GI bleed, with persistent bleeding, hemorrhagic shock, and a component of cardiogenic shock the thought is that he likely had chronic anemia, and has been weak for the last month, son does report an episode of hematemesis,, his Hemoccult stool was positive, then likely what happened yesterday is is that due to chronic anemia, worsening anemia, and developing of hemorrhagic shock, he had an acute cardiac event, possible significant aspiration event, requiring chest compressions, and intubation, he could have also had a cardiac event in isolation, given his elevated troponins, ? I spoke to pulmonary, patient has complete whiteout of the left lung, concerns for hemothorax, will need a bronchoscopy, will need a chest tube ? I discussed with patient's son about goals of care, patient son said that they had a family meeting last night, and patient was made DNR/DNI, however their mom is still hoping that he will survive, he tells me that him and the rest of the siblings know that Morris is likely going to succumb to his acute illness, and likely , and they do not want him to suffer, they want all these interventions to be stopped, however they are waiting on their mother to make that decision ? I spoke to patient's over the phone, as it was 11, and she was not at the hospital, I discussed patient's clinical status, the new developments over the left hemothorax, possibly requiring chest tube placement, need for bronchoscopy, need for further aggressive interventions further transfusions, further interventions, she tells me that Morris has always tell her that he does not want to suffer and does not want to remain a vegetable, and she does not want him to suffer, but she wants to see him, she wants to read the Bible to him, before he passes on ? Patient's is at bedside, I spoke to her in detail, about findings as above, she does not want to speak to me in front of Morris, ? I had a family meeting with patient's , patient's 2 sons, nursing staff about overall goals of care, ? I advised patient's family that the likelihood of having a meaningful recovery is fairly unlikely, that at baseline he has a poor level of functioning, and that for him to regain that function is fairly unlikely, currently he is in multiorgan failure continues to have evidence of hemorrhagic shock is on multiple pressors, he has 100% oxygen requirements, will need to put in a chest tube ? In order to give him all the chances for survival related to have to manage him appropriately including chest tube, pulmonary consultation, general surgery consultation for EGD, further transfusions, and to give him time ? The other option would be to ease his pain and ease his suffering allow him to pass away comfortably, ? I presented all options available to patient , including continue medical interventions, consulting general surgery, pulmonary, placing chest tube, continue transfusions, giving him time versus easing his pain easing suffering allowing him to pass away comfortably, ? I advised patient's that she knows Morris well, will with Morris today if I were speaking with him, what would be his wishes and she tells me that he would never want to live like this, he would never want to suffer, she does not want him to suffer, she just wants him to be comfortable, he would never want to be a vegetable like this she tells me ? I advised patient's that all the interventions currently are supportive interventions, if we gave him time there is a possibility that he might come off these interventions, these pressors, the ventilator but it would be a prolonged hospital course it could be weeks before he might come off the ventilator, it might be days before he comes off pressors, and he is going to need more ex tensive evaluations including chest tube, pulmonary eval, EGD and colonoscopy possible transfer to tertiary level center for concern sideration of IR intervention for his bleeding, he might need cardiac catheterization given his elevated troponins ? The other option would be to ease his pain and ease his suffering and allow him to possibly comfortably ? After discussing the risks and benefits of all options, she voiced understanding, all questions answered, agreed to proceed with comfort care, ? Patient's sons at bedside agree with comfort care, ? I advised patient and her family they he can spend as much as times as a want with Morris, and when they are ready we will start the comfort care process, ? Patient was again seen in the afternoon, patient's tells me that she is ready, patient's family stepped out of the room, patient was terminally extubated to 2 L, pressors were stopped, started comfort care medications, family allowed back in the room Patient was admitted to [facility] for cardiac arrest episode, with acute hypoxic respiratory failure, multifactorial shock, cardiogenic, hemorrhagic shock, acute chronic anemia, GI bleed, NSTEMI, elevated INR, COLIN, multiorgan failure, patient was intubated, sedated on multiple pressors, monitored in the intensive care unit, status post blood transfusions, FFP, supportive measures, after discussing the risk and benefits of all options, patient's family voiced understanding, all questions answered, shared decision- making, agreed to proceed with comfort care, patient was terminally extubated, made on comfort care, time of 10/09/2023 at 1504pm Additional Data Confirmation of as documented by pronouncing clinician: no pulse, no respirations, no heart sounds and pupils fixed and dilated Family: at bedside Additional persons at bedside: nursing staff Attending/PCP notified?: I am attending Was code activated?: No Autopsy requested?: No Advance directives?: No Hospice patient?: No Discharge Plan Discharge Patient Disposition: Condition: Stable Probable Cause of Probable cause of : Cardiac arrest DS Attestations Time Spent in /Discharge Care*: greater than 30 min Quality - AMI: AMI present?: No Quality - Stroke: CVA present?: No Quality - VTE: VTE present?: No Coding Level of Care Code 92537 Total time (in minutes) for Discharge: 55 Diagnoses Shock R57.9 Cardiogenic shock R57.0 Hemorrhagic shock R57.8 Acute anemia D64.9 GI bleed K92.2 Elevated INR R79.1 Lactic acidosis E87.20 NSTEMI (non-ST elevated myocardial infarction) I21.4 Cardiac arrest I46.9 Hypothermia T68.XXXA Need for comfort care Dislocation of right hip S73.004A COPD (chronic obstructive pulmonary disease) J44.9 Ischemia due to increased oxygen demand I24.89 Hemothorax J94.2
[2023-10-18 08:25] LABS: Fibrinogen Degradation Product 5 mcg/mL (LESS THAN 5)
== END 2023-10-09 17:00 | disposition expired | DRG 208 ==
LOC: ER 13:57 → ICU 18:52
PROVIDERS: Admitting Provider Family Medicine; Emergency Provider Family Medicine; PCP Family Medicine; Visit Provider Family Medicine
DX: J96.01 Acute respiratory failure with hypoxia (principal); I21.4 Non-ST elevation (NSTEMI) myocardial infarction; J94.2 Hemothorax; T84.021A Dislocation of internal left hip prosthesis, initial encounter; N17.9 Acute kidney failure, unspecified; K92.2 Gastrointestinal hemorrhage, unspecified; E87.20 Acidosis, unspecified; I46.9 Cardiac arrest, cause unspecified; Z86.718 Personal history of other venous thrombosis and embolism; Z79.01 Long term (current) use of anticoagulants; I95.9 Hypotension, unspecified; J44.9 Chronic obstructive pulmonary disease, unspecified; Z87.891 Personal history of nicotine dependence; D64.9 Anemia, unspecified; Z51.5 Encounter for palliative care; Z66 Do not resuscitate; Y79.2 Prosthetic and other implants, materials and accessory orthopedic devices associated with adverse incidents; E88.09 Other disorders of plasma-protein metabolism, not elsewhere classified; R57.0 Cardiogenic shock; R19.5 Other fecal abnormalities; F41.9 Anxiety disorder, unspecified; Z99.81 Dependence on supplemental oxygen; R68.0 Hypothermia, not associated with low environmental temperature; R57.8 Other shock
CPT/HCPCS: 36415; 36430; 36592; 36600; 51702; 70450; 71045; 71260; 72170; 74177; 80051; 80053; 82140; 82330; 82533; 82728; 82803; 82805; 83540; 83605; 83735; 83880; 84100; 84443; 84484; 85007; 85014; 85018; 85025; 85362; 85378; 85384; 85610; 85730; 86140; 86850; 86900; 86920; 86927; 87040; 87205; 93005; 93010; 93306; 93970; 94002; 94003; 94640; 94799; 96365; 96366; 96367; 96368; 96375; 96376; 99291; 99292; C9113; J1265; J1644; J1940; J2060; J2250; J2270; J2354; J2543; J2598; J3010; J3370; J3475; J7030; P9016; P9017; P9040; P9046; Q9967